=== PATIENT | female | born 1955 | race Caucasian/White ===

== ENCOUNTER → 2017-09-09 11:38 | Outpatient (CLI) | payer BC, SELFPAY ==
[2017-09-09 14:47] LABS: Basophils % 0.6 % (0.1-2.0); Eosinophils # 0.1 K/mm3 (0.0-0.4); Eosinophils % 1.5 % (0.1-12.0); Hematocrit 37.9 % (37.0-47.0); Hemoglobin 12.5 g/dL (12.2-16.2); Lymphocytes # 2.4 K/mm3 (0.7-4.5); Lymphocytes % 39.5 K/mm3 (10-50); Mean Corpuscular HGB Conc 32.9 g/dL (31.8-35.4); Mean Corpuscular Hemoglobin 30.2 pg (27.0-31.2); Mean Corpuscular Volume 91.8 fl (81-99); Mean Platelet Volume 7.6 fl (7.4-10.4); Monocytes # 0.4 K/mm3 (0.1-1.0); Neutrophils # 3.1 K/mm3 (1.8-7.8); Neutrophils % 51.3 % (37.0-80.0); Platelet Count 322 K/mm3 (142-424); Red Blood Count 4.13 M/mm3 (4.20-5.40); Red Cell Distribution Width 12.5 % (11.5-17.5); White Blood Count 6.1 K/mm3 (4.8-10.8)
[2017-09-09 16:38] LABS: Alanine Aminotransferase 53 U/L (12-78); Albumin Level 3.8 gm/dL (3.4-5.0); Albumin/Globulin Ratio 1.1 (1.1-1.8); Alkaline Phosphatase 119 U/L (46-116); Anion Gap 14.2 mEq/L (5-15); Aspartate Amino Transferase 28 U/L (15-37); Bilirubin,Total 0.3 mg/dL (0.2-1.0); Blood Urea Nitrogen 17 mg/dL (7-18); Calcium 9.1 mg/dL (8.5-10.1); Carbon Dioxide 29 mmol/L (21.0-32.0); Chloride 103 mmol/L (98-107); Cholesterol 204 mg/dL (140-200); Creatinine,Serum 0.79 mg/dL (0.55-1.02); Estimated Glomerular Filt Rate 74 ml/min (>60); GFR (African American) 89 ML/MIN (>60); Globulin 3.4 gm/dl (1.3-3.2); Glucose 116 mg/dL (74-106); HDL Cholesterol 51 mg/dL (29-89); LDL Cholesterol 124 mg/dL (0-130); Potassium 4.2 mmoL/L (3.5-5.1); Sodium 142 mmol/L (136-145); T4 (Thyroxine) 8.7 ug/dl (4.7-13.3); Thyroid Stimulating Hormone 0.82 uIU/ml (0.358-3.740); Total Protein,Serum 7.2 gm/dL (6.4-8.2); Triglycerides 144 mg/dL (30-200); VLDL Cholesterol 29 mg/dL (0-40)
[2017-09-10 18:30] LABS: Vitamin D 25 Hydroxy 30.4 ng/mL (30.0-100.0)
== END ==
PROVIDERS: Visit Provider Physician Assistant
DX: E11.9 Type 2 diabetes mellitus without complications (principal); E78.5 Hyperlipidemia, unspecified
CPT/HCPCS: 80053; 80061; 82652; 83036; 84436; 84443; 85025

== ENCOUNTER → 2019-04-26 16:45 | Outpatient (CLI) | payer BC, SELFPAY ==
[2019-04-26 17:06] LABS: Basophils % 0.5 % (0.1-2.0); Eosinophils # 0.1 K/mm3 (0.0-0.4); Eosinophils % 1.3 % (0.1-12.0); Hematocrit 37.1 % (37.0-47.0); Hemoglobin 12.4 g/dL (12.2-16.2); Lymphocytes # 2.8 K/mm3 (0.7-4.5); Lymphocytes % 34.2 % (10-50); Mean Corpuscular HGB Conc 33.5 g/dL (31.8-35.4); Mean Corpuscular Hemoglobin 30.9 pg (27.0-31.2); Mean Corpuscular Volume 92.2 fl (81-99); Mean Platelet Volume 7.4 fl (7.4-10.4); Monocytes # 0.5 K/mm3 (0.1-1.0); Monocytes % 6.5 % (1.7-9.3); Neutrophils # 4.7 K/mm3 (1.8-7.8); Neutrophils % 57.5 % (37.0-80.0); Platelet Count 406 K/mm3 (142-424); Red Blood Count 4.02 M/mm3 (4.20-5.40); Red Cell Distribution Width 12.9 % (11.5-17.5); White Blood Count 8.1 K/mm3 (4.8-10.8)
[2019-04-26 17:26] LABS: Alanine Aminotransferase 61 U/L (12-78); Albumin Level 3.8 gm/dL (3.4-5.0); Albumin/Globulin Ratio 1.1 (1.1-1.8); Alkaline Phosphatase 132 U/L (46-116); Anion Gap 9.3 mEq/L (5-15); Aspartate Amino Transferase 45 U/L (15-37); Bilirubin,Total 0.2 mg/dL (0.2-1.0); Blood Urea Nitrogen 15 mg/dL (7-18); Calcium 9.7 mg/dL (8.5-10.1); Carbon Dioxide 31 mmol/L (21.0-32.0); Chloride 101 mmol/L (98-107); Chol/HDL Ratio 4.1 (1-3.5); Cholesterol 187 mg/dL (140-200); Creatinine,Serum 0.98 mg/dL (0.55-1.02); Estimated Glomerular Filt Rate 57 ml/min (>60); Free T4 (Free Thyroxine) 1.04 ng/dl (0.76-1.46); GFR (African American) 69 ML/MIN (>60); Globulin 3.5 gm/dl (1.3-3.2); Glucose 90 mg/dL (74-106); HDL Cholesterol 46 mg/dL (29-89); LDL Cholesterol 99 mg/dL (0-130); Potassium 4.3 mmoL/L (3.5-5.1); Sodium 137 mmol/L (136-145); Thyroid Stimulating Hormone 1.98 uIU/ml (0.358-3.740); Total Protein,Serum 7.3 gm/dL (6.4-8.2); Triglycerides 208 mg/dL (30-200); VLDL Cholesterol 42 mg/dL (0-40)
[2019-04-26 18:11] LABS: Hemoglobin A1C 6.2 % (0.0-7.0)
[2019-04-28 12:12] LABS: Creatinine, Urine 143.1 mg/dL (Not Estab.); Microalbumin, Urine 11.4 ug/mL (Not Estab.)
[2019-04-28 18:49] LABS: Vitamin D 25 Hydroxy 25.1 ng/mL (30.0-100.0)
== END ==
PROVIDERS: Visit Provider Nurse Practitioner Family
DX: E11.9 Type 2 diabetes mellitus without complications (principal); I10 Essential (primary) hypertension; E55.9 Vitamin D deficiency, unspecified; Z79.84 Long term (current) use of oral hypoglycemic drugs; Z79.899 Other long term (current) drug therapy
CPT/HCPCS: 80053; 80061; 82043; 82570; 82652; 83036; 84439; 84443; 85025

== ENCOUNTER → 2019-05-08 13:48 | Outpatient (CLI) | payer BC, SELFPAY ==
--- NOTE | 2019-05-08 13:51 | XR_ITS ---
PROCEDURE: XR CHEST 2V CLINICAL HISTORY: elevated alk phos The COMPARISON: No exams were available for comparison FINDINGS: Normal heart size. Moderate-sized hiatal hernia. 6 mm nodule right lower lobe superior segment. The nodule is fairly dense and may be due to a granuloma. Stability may be confirmed with follow-up. There also ill-defined nodular opacity overlying the left lower lobe at 6 mm. The remaining lungs are clear. No acute bony finding. IMPRESSION: Bilateral pulmonary nodules which are indeterminate. Chest CT may provide further evaluation. Moderate-sized hiatal hernia Dictated by: Hosea Cole MD 05/08/2019 15:15 Electronically signed by Hosea Cole MD in [place] 05/08/2019 15:15
== END ==
PROVIDERS: PCP Emergency Medicine; Visit Provider Nurse Practitioner Family
DX: R74.8 Abnormal levels of other serum enzymes (principal)
CPT/HCPCS: 71046

== ENCOUNTER → 2019-06-01 13:04 | Outpatient (CLI) | payer BC, SELFPAY ==
--- NOTE | 2019-06-01 13:06 | CT_ITS ---
PROCEDURE: CT CHEST WO CON CLINICAL INDICATION: nodules Evaluate lung nodule, elevated alkaline phosphatase, abnormal chest x-ray, solitary pulmonary nodule COMPARISON: XR CHEST 2V from 05/08/2019 TECHNIQUE: Axial images obtained with sagittal and coronal reformats. All CT scans at the facility use one or more dose reduction, viz: automated exposure control, ma/kV adjustment per patient size (including targeted exams where dose is matched to indication, i.e. head), or iterative reconstruction technique. FINDINGS: Coronary artery calcifications. Normal heart size. Moderate-sized hiatal hernia. There is an 8 mm calcified nodule in the superior segment of the right lower lobe laterally corresponding to the radiographic abnormality. A 3 mm noncalcified nodules present in the right middle lobe inferiorly. A 4 mm noncalcified nodules present in the right lower lobe laterally. 4 mm noncalcified nodule in the left lower lobe inferiorly. No infiltrates or effusion. There are multiple bilateral breast nodules. Nodules have been described on a previous mammogram of 09/03/2016. IMPRESSION: 1. Radiographic abnormality corresponds to a calcified granuloma. 2. There are other noncalcified nodules present 4 mm or less. Annual follow-up suggested. 3. Moderate-sized hiatal hernia. 4. Bilateral breast nodules. Suggest mammogram for further evaluation Dictated by: Hosea Cole MD 06/02/2019 08:32 Electronically signed by Hosea Cole MD in [place] 06/02/2019 08:32
== END ==
PROVIDERS: PCP Nurse Practitioner Family; Visit Provider Nurse Practitioner Family
DX: R91.1 Solitary pulmonary nodule (principal)
CPT/HCPCS: 71250

== ENCOUNTER → 2021-12-09 07:05 | Outpatient (CLI) | payer MEDICARE, MEDICAID, SELFPAY ==
[2021-12-08 18:55] LABS: Basophils # 0.1 K/mm3 (0-0.2); Basophils % 1.2 % (0.1-2.0); Eosinophils # 0.1 K/mm3 (0.0-0.4); Eosinophils % 1.3 % (0.1-12.0); Hemoglobin 12.4 g/dL (12.2-16.2); Lymphocytes % 30.1 % (10-50); Mean Corpuscular HGB Conc 33.7 g/dL (31.8-35.4); Mean Corpuscular Hemoglobin 30.5 pg (27.0-31.2); Mean Corpuscular Volume 90.6 fl (81-99); Mean Platelet Volume 8.1 fl (7.4-10.4); Monocytes # 0.8 K/mm3 (0.1-1.0); Monocytes % 7.5 % (1.7-9.3); Neutrophils % 59.9 % (37.0-80.0); Platelet Count 436 K/mm3 (142-424); Red Blood Count 4.08 M/mm3 (4.20-5.40); Red Cell Distribution Width 14.3 % (11.5-17.5)
[2021-12-08 19:43] LABS: Alanine Aminotransferase 53 U/L (12-78); Albumin Level 4.2 g/dl (3.5-5.0); Albumin/Globulin Ratio 1.4 (1.1-1.8); Alkaline Phosphatase 139 U/L (38-126); Anion Gap 15.3 mEq/L (5-15); Aspartate Amino Transferase 50 U/L (14-36); Blood Urea Nitrogen 18 mg/dl (7-17); Calcium 10.1 mg/dl (8.4-10.2); Carbon Dioxide 24 mmol/L (22.0-30.0); Chloride 102 mmol/L (98-107); Chol/HDL Ratio 4.4 (1-3.5); Cholesterol 192 mg/dl (140-200); Estimated Glomerular Filt Rate 72 ml/min (>60); GFR (African American) 87 ML/MIN (>60); Glucose 140 mg/dl (74-100); HDL Cholesterol 44 mg/dl (40-60); Potassium 4.3 mmoL/L (3.5-5.1); Sodium 137 mmol/L (136-145); Total Protein,Serum 7.2 g/dl (6.3-8.2); Triglycerides 195 mg/dl (30-150); VLDL Cholesterol 39 mg/dL (0-40)
[2021-12-08 19:46] LABS: Bilirubin,Total 0.1 mg/dl (0.2-1.3); Hemoglobin A1C 6.4 % (4.0-6.0)
[2021-12-08 19:54] LABS: Direct LDL Cholesterol 97.65 mg/dL (100-129)
[2021-12-08 20:00] LABS: T4 (Thyroxine) 8.1 ug/dl (5.53-11.0)
[2021-12-08 21:00] LABS: Thyroid Stimulating Hormone 1.78 uIU/mL (0.465-4.68)
== END ==
PROVIDERS: PCP Nurse Practitioner Family; Visit Provider Nurse Practitioner Family
DX: E11.9 Type 2 diabetes mellitus without complications (principal); E66.3 Overweight; E78.5 Hyperlipidemia, unspecified; I10 Essential (primary) hypertension; K21.9 Gastro-esophageal reflux disease without esophagitis; Z68.29 Body mass index [BMI] 29.0-29.9, adult; E55.9 Vitamin D deficiency, unspecified; Z79.84 Long term (current) use of oral hypoglycemic drugs
CPT/HCPCS: 80053; 80061; 82043; 82306; 83036; 84436; 84443; 85025

== ENCOUNTER 2023-11-11 15:13 | Outpatient (CLI) | payer MEDICARE, MEDICAID, SELFPAY ==
[2023-11-11 18:53] LABS: Basophils # 0.1 K/mm3 (0-0.2); Basophils % 0.7 % (0.1-2.0); Eosinophils # 0.1 K/mm3 (0.0-0.4); Eosinophils % 1.6 % (0.1-12.0); Hematocrit 40.1 % (37.0-47.0); Hemoglobin 13.1 g/dL (12.2-16.2); Lymphocytes # 3.1 K/mm3 (0.7-4.5); Lymphocytes % 33.9 % (10-50); Mean Corpuscular HGB Conc 32.7 g/dL (31.8-35.4); Mean Corpuscular Hemoglobin 30.4 pg (27.0-31.2); Mean Corpuscular Volume 93.1 fl (81-99); Mean Platelet Volume 8.3 fl (7.4-10.4); Monocytes # 0.6 K/mm3 (0.1-1.0); Neutrophils # 5.2 K/mm3 (1.8-7.8); Neutrophils % 56.8 % (37.0-80.0); Platelet Count 405 K/mm3 (142-424); Red Blood Count 4.31 M/mm3 (4.20-5.40); White Blood Count 9.1 K/mm3 (4.8-10.8)
[2023-11-11 19:06] LABS: Alanine Aminotransferase 36 U/L (12-78); Albumin Level 4.4 g/dl (3.5-5.0); Albumin/Globulin Ratio 1.5 (1.1-1.8); Alkaline Phosphatase 124 U/L (38-126); Aspartate Amino Transferase 42 U/L (14-36); Bilirubin,Total 0.5 mg/dl (0.2-1.3); Blood Urea Nitrogen 14 mg/dl (7-17); Calcium 10.1 mg/dl (8.4-10.2); Carbon Dioxide 28 mmol/L (22.0-30.0); Chloride 101 mmol/L (98-107); Cholesterol 187 mg/dl (140-200); Estimated Glomerular Filt Rate 49 ml/min (>60); GFR (African American) 60 ML/MIN (>60); Globulin 2.9 g/dL (1.3-3.2); Glucose 96 mg/dl (74-100); HDL Cholesterol 62 mg/dl (40-60); Sodium 140 mmol/L (136-145); Total Protein,Serum 7.3 g/dl (6.3-8.2); Triglycerides 170 mg/dl (30-150); VLDL Cholesterol 34 mg/dL (0-40)
[2023-11-11 19:17] LABS: Direct LDL Cholesterol 86.79 mg/dL (100-129)
[2023-11-11 19:21] LABS: 25-OH Vitamin D, Total 41.3 ng/mL (30-100)
[2023-11-11 19:36] LABS: Thyroid Stimulating Hormone 1.71 uIU/mL (0.465-4.68)
[2023-11-11 19:55] LABS: Vitamin B12 488 pg/mL (239-931)
[2023-11-11 20:38] LABS: Hemoglobin A1C 5.9 % (4.0-6.0)
== END 2023-11-11 23:59 | disposition home or self-care (01) ==
LOC: LAB.DROPOF 11-14 15:14
PROVIDERS: PCP Family Medicine; Visit Provider Family Medicine
DX: R53.83 Other fatigue (principal); E55.9 Vitamin D deficiency, unspecified; R73.09 Other abnormal glucose; E78.5 Hyperlipidemia, unspecified; E53.8 Deficiency of other specified B group vitamins; Z68.26 Body mass index [BMI] 26.0-26.9, adult
CPT/HCPCS: 80053; 80061; 82306; 82607; 83036; 84443; 85025

== ENCOUNTER 2024-01-04 12:14 | Day surgery (SDC) | payer MEDICARE, MEDICAID, SELFPAY ==
[2024-01-03 09:22] VITALS: BMI 25.9
[2024-01-04 12:51] VITALS: BP 142/69; PULSE 48; RESP 18; TEMP 36.3; O2SAT 96
--- NOTE | 2024-01-04 14:02 | EXP.ANES.CKL ---
[facility] Disclaimer: The information contained in this section may have been updated after the patient was seen, as this information can be updated by other users. Medical History Overweight with body mass index (BMI) of 29 to 29.9 in adult GERD (gastroesophageal reflux disease) Diabetes Depression Hyperlipidemia Hypertension Surgical History History of colonoscopy Family History Other Family history of cancer Social History Smoking Status: Never smoker alcohol intake: current substance use type: denies use current occupational status: retired Travel in the last 8 weeks: None [facility] Anesthesia Checklist Patient Identification Patient Identification: Arm Band and Verbal (Name & ) Structural Data Admitted From: Home Planned Operative Procedure/s: EGD Consent for Planned Operative Procedure(s) Verified: Yes Verified Documents: Surgical Consent and History and Physical NPO Status Verified Time NPO: 00:00 Additional verifications Anesthesia Reactions: No Airway Assessment Mallampati Score:: Class II C-Spine Mobility Assessed: Yes TMJ Mobility Assessed: Yes Dentition: Poor Dentition Neurological Assessment Level of Consciousness: Awake Hx Seizures: No Numbness or tingling in extremities: No Anesthesia Plan Anesthesia Risk discussed: Yes Anesthesia Plan: Verified ASA Class: II Anesthesia Type: MAC
[2024-01-04 14:10] VITALS: O2SAT 95
--- NOTE | 2024-01-04 14:29 | HMH.SCOPE ---
Procedure: Date: 01/04/24 Patient Date of :: 1955 Procedure Performed:: EGD Indications:: The patient is a 68-year-old who presents for EGD evaluation of dysphagia Performing Provider:: Lyndon Khan MD Referring Provider:: Meme Canales APRN Sedation:: See RN record Procedure:: The gastroscope was gently passed through the incisoral orifice into the oral cavity and under direct visualization the esophagus was intubated. The endoscope was passed down the esophagus, through the stomach, and into the duodenum. Color, texture, mucosa, and anatomy of the esophagus, stomach, and duodenum were carefully examined with the scope. Findings:: There was finding of Priest's esophagus in the distal esophagus. Short segment extending 2 to 2.5 cm above the GE junction. There were islands of normal-appearing esophageal mucosa within the Priest's mucosa. There was a benign appearing narrowing at the GE junction. The gastroscope passed easily through this area. Esophageal dilatation was performed sequentially with an 18 to 20 mm TTS balloon. Biopsies were obtained in four-quadrant fashion throughout the Priest's mucosa. There was persistent oozing of blood after a mucosal biopsy. Hemostasis was achieved with deployment of two endoclips. There was a large hiatal hernia measuring approximately 9 cm in size. There was inflammation of the gastric body characterized by erythema and congestion. There were scattered small fundic gland polyps seen in the stomach. Biopsies were obtained with a cold forceps for histology. Examined duodenum appeared normal. Impression: Short segment Priest's esophagus Large hiatal hernia Gastritis Fundic gland polyps Recommendations:: Await pathology was Recommend upper GI barium study Continue pantoprazole as prescribed Repeat EGD in 3 years, sooner if clinically indicated Complications:: None Estimated blood obtained (mL): 0 Colonoscopy Component Colonoscopy Component Was a colonoscopy performed during today's procedure?: No
[2024-01-04 14:30] VITALS: BP 94/51; PULSE 68; RESP 16; TEMP 36.5; O2SAT 92
[2024-01-04 14:40] VITALS: BP 94/54; PULSE 61; RESP 12; O2SAT 93
[2024-01-04 14:50] VITALS: BP 100/61; PULSE 61; RESP 16; O2SAT 92
--- NOTE | 2024-01-04 14:50 | SUR.PHASEII ---
BP 76/46. patient unresponsive post sedation for EGD. providers at bedside. patient now remains stable with BP 100/61 and alert x4
[2024-01-04 15:15] VITALS: BP 113/71; PULSE 54; RESP 16; O2SAT 97
[2024-01-05 10:27] LABS: POC Glucose,Bedside 107 (70-110)
== END 2024-01-04 15:15 | disposition home or self-care (01) ==
PROVIDERS: PCP Nurse Practitioner Family; Visit Provider Internal Medicine
PROC: 0DJ08ZZ Inspection of Upper Intestinal Tract, Via Natural or Artificial Opening Endoscopic (ICD-10-PCS; CPT 43235; principal; 2024-01-04 13:30)
DX: R13.10 Dysphagia, unspecified; K21.9 Gastro-esophageal reflux disease without esophagitis; K44.9 Diaphragmatic hernia without obstruction or gangrene; K29.70 Gastritis, unspecified, without bleeding; K22.70 Barrett's esophagus without dysplasia; K31.7 Polyp of stomach and duodenum; E11.8 Type 2 diabetes mellitus with unspecified complications; Z79.84 Long term (current) use of oral hypoglycemic drugs
CPT/HCPCS: 43239; 43249; 82962; 88305; C1726

== ENCOUNTER 2024-01-13 07:43 | Outpatient (CLI) | payer MEDICARE, MEDICAID, SELFPAY ==
--- NOTE | 2024-01-13 07:47 | FL_ITS ---
FINAL REPORT CLINICAL HISTORY: solids and liquids both get stuck mid chest. scoped and biopsy last week DAP 780.91 fluoro 46.98 FINDINGS: ESOPHAGRAM HISTORY: Abdominal pain, nausea. PROCEDURE: The patient ingested barium. Effervescent crystals were also administered. Spot and overhead films were obtained. FINDINGS: The esophagus is normal. There is a large type III hiatal hernia. There is no gastroesophageal reflux. Peristalsis is normal. A barium tablet passes through the esophagus without obstruction. IMPRESSION: Large type III hiatal hernia with hiatal and paraesophageal components. Fluoroscopy time: 47 seconds Fluoro dose: 780.91 DAP in [employer] reviewed , interpreted and dictated by Dr. Sarika Melgar. Transcribed by Hiram Maher PA-C. Reviewed, Interpreted and Dictated by Sarika Melgar MD Transcribed by MELY Clinton Authenticated and [facility]
== END 2024-01-13 23:59 | disposition home or self-care (01) ==
LOC: RAD 07:44
PROVIDERS: PCP Physician Assistant; Visit Provider Internal Medicine
DX: R13.10 Dysphagia, unspecified (principal); K44.9 Diaphragmatic hernia without obstruction or gangrene
CPT/HCPCS: 74220

== ENCOUNTER 2024-04-15 18:32 | Observation (INO) | payer MEDICARE, MEDICAID, SELFPAY ==
--- NOTE | 2024-04-15 18:30 | ECG_ITS ---
APPROVED REPORT Exam: Resting ECG HR:144 bpm ECG Measurements Heart Rate 144 AXES QRSd 78 QRS 57 QT 323 T 119 QTc 406 Conclusion ATRIAL FLUTTER/TACHYCARDIA WITH RAPID VENTRICULAR RESPONSE NONSPECIFIC ST & T-WAVE ABNORMALITY ABNORMAL ECG UNCONFIRMED REPORT Electronically signed by : SARAI LOPEZ, 04/16/2024 06:53:49
[2024-04-15 18:32] VITALS: BP 119/68; PULSE 147; RESP 20; TEMP 36.7; O2SAT 99; BMI 25.7
--- NOTE | 2024-04-15 18:34 | HMH.EDCP ---
Discharge Plan Disposition Patient Disposition: Admitted Chief Complaint: Chest Pain Prescriptions Prescriptions: No Action atorvastatin 80 mg tablet See Rx Instructions .ROUTE .COMPLEX Qty: 90 2RF Dose Instruction: Take 1 tablet by mouth once daily Rx Instructions: Take 1 tablet by mouth once daily patient needs an appt before anymore refills bisoprolol-hydrochlorothiazide 5-6.25 mg tablet See Rx Instructions .ROUTE .COMPLEX Qty: 90 2RF Dose Instruction: Take 1 tablet by mouth once daily Rx Instructions: Take 1 tablet by mouth once daily cholecalciferol (vitamin D3) [Vitamin D3] 50 mcg (2,000 unit) capsule See Rx Instructions .ROUTE .COMPLEX Qty: 90 2RF Dose Instruction: Take 1 capsule by mouth once daily Rx Instructions: Take 1 capsule by mouth once daily fluoxetine 40 mg capsule See Rx Instructions .ROUTE .COMPLEX Qty: 90 2RF Dose Instruction: Take 1 capsule by mouth once daily Rx Instructions: Take 1 capsule by mouth once daily metformin 500 mg tablet See Rx Instructions .ROUTE .COMPLEX Qty: 90 2RF Dose Instruction: Take 1 tablet by mouth once daily Rx Instructions: Take 1 tablet by mouth once daily pantoprazole 40 mg tablet,delayed release (DR/EC) See Rx Instructions .ROUTE .COMPLEX Qty: 90 3RF Dose Instruction: Take 1 tablet by mouth once daily Rx Instructions: Take 1 tablet by mouth once daily hydroxyzine pamoate [Vistaril] 25 mg capsule 25 mg PO HS Qty: 30 0RF ergocalciferol (vitamin D2) 1,250 mcg (50,000 unit) capsule PO Patient Comments: TAKE 1 CAPSULE BY MOUTH ONCE A WEEK Referrals Follow up/Referrals: Meera Miles PA [Physician Circuit Clerk] - See instructions Clinical Impressions Clinical Impression: Gastroparesis, Chest pain, Abdominal pain, Acute hypokalemia Print Language Print Language: Lebanese Discharge ED Provider: Silas Clement HPI General Chief Complaint: Chest Pain Stated Complaint: Chest Pain Time Seen by Provider: 04/15/24 18:34 History of Present Illness HPI narrative: Please note that above description of symptoms, in this electronic medical record under categorization of recalled from ER triage doctor by RN are reflective of an initial nursing assessment, however, is not reflective of my full history and physical exam that was personally taken and clarified. Consequentially, this preceding description of symptoms, which may include the patient's categorized chief complaint in the EMR, do not reflect my personal clinical impression, and the ultimate description of history of present illness and patient stated complaints should be deferred to this section of the note. Unless stated otherwise or congruent with this section of the note, additional signs, symptoms, or incongruence should be interpreted as inaccurate with my clinical impression. Related Data Home Medications ?Medication ?Instructions ?Recorded ?Confirmed ergocalciferol (vitamin D2) 1,250 PO 03/20/24 03/20/24 mcg (50,000 unit) capsule Previous Rx's ?Medication ?Instructions ?Recorded atorvastatin 80 mg tablet See Rx Instructions .Route 11/11/23 .COMPLEX #90 tabs bisoprolol 5 See Rx Instructions .Route 11/11/23 mg-hydrochlorothiazide 6.25 mg .COMPLEX #90 tabs tablet cholecalciferol (vitamin D3) 50 See Rx Instructions .Route 11/11/23 mcg (2,000 unit) capsule (Vitamin .COMPLEX #90 caps D3) fluoxetine 40 mg capsule See Rx Instructions .Route 11/11/23 .COMPLEX #90 caps hydroxyzine pamoate 25 mg capsule 25 mg PO HS #30 caps 11/11/23 (Vistaril) metformin 500 mg tablet See Rx Instructions .Route 11/11/23 .COMPLEX #90 tabs pantoprazole 40 mg tablet,delayed See Rx Instructions .Route 11/11/23 release .COMPLEX #90 tabs Allergies Allergy/AdvReac Type Severity Reaction Status Date / Time No Known Drug Allergies Allergy Unknown NA Verified 03/20/24 11:05 [NKDA] [facility] Disclaimer: The information contained in this section may have been updated after the patient was seen, as this information can be updated by other users. Medical History Overweight with body mass index (BMI) of 29 to 29.9 in adult GERD (gastroesophageal reflux disease) Diabetes Depression Hyperlipidemia Hypertension Surgical History History of colonoscopy Family History Other Family history of cancer Social History Smoking Status: Unknown if ever smoked alcohol intake: current substance use type: denies use current occupational status: retired Travel in the last 8 weeks: None Other Medical History Have you received the Flu Vaccine for this season: No Have you received the Pneumonia Vaccine: No ROS Obtained: Yes All systems reviewed & no additional complaints except as documented Physical Exam General General appearance: alert Neck Neck exam: Present trachea midline Chest Chest inspection: Present normal inspection and symmetric chest wall rise Respiratory Respiratory exam: Present normal lung sounds bilaterally; Absent respiratory distress, wheezes, stridor, accessory muscle use or prolonged expiratory phase Cardiovascular Cardiovascular exam: Present regular rate, normal rhythm and other (Pulses equal and symmetric in upper and lower extremities) Extremities Exam Extremities exam: Absent edema Neurological Exam Neurological exam: Present alert, oriented X3 and CN II-XII intact Skin Skin exam: Present warm and dry; Absent cyanosis, diaphoresis or pallor HEART Score HEART Score HEART Score assessment performed?: Yes History (anamnesis): Moderately suspicious ECG: Non-specific disturbance Age: >65 years Risk factors: 1-2 risk factors Troponin: </= normal limit HEART Score: 5 Critical Care Critical Care Time Critical Care Time: No Medical Decision Making Medical Records Medical records reviewed: Yes I reviewed the patient's medical records. Jovi Inquiry Pt receiving controlled substance: No Jovi was queried for this patient: No Vital Signs Vital Signs: 04/15/24 18:32 04/15/24 19:15 Temperature 98.1 F Temperature Source Oral Pulse Rate 82 Pulse Rate [Radial] 147 H Respiratory Rate 20 22 Blood Pressure 121/77 Blood Pressure [Right Arm] 119/68 Blood Pressure Mean [Right Arm] 85 Blood Pressure Source [Right Arm] Automatic Cuff Blood Pressure Position [Right Arm] Sitting 02 Sat by Pulse Oximetry 99 99 Oxygen Delivery Method Room Air Nasal Cannula Oxygen Flow Rate (LPM) 2 Lab Data Labs: Lab Results 04/15/24 18:12: WBC 15.3 H, RBC 4.07 L, Hgb 13.0, Hct 37.3, MCV 91.7, MCH 32.1 H, MCHC 35.0, RDW 13.5, Plt Count 451 H, MPV 7.6, Neut % (Auto) 47.4, Lymph % (Auto) 43.0, [place] % (Auto) 8.1, Eos % (Auto) 0.7, Baso % (Auto) 0.8, Neut # (Auto) 7.3, Lymph # (Auto) 6.6 H, [place] # (Auto) 1.2 H, Eos # (Auto) 0.1, Baso # (Auto) 0.1, Total Counted 100, Neutrophils % (Manual) 46, Lymphocytes % (Manual) 42, Atypical Lymphs % 3.0, Monocytes % (Manual) 9, Platelet Estimate Normal, Ruben Cells 2+, Sodium 143, Potassium 2.9 L*, Chloride 98, Carbon Dioxide 26, Anion Gap 21.9 H, BUN 17, Creatinine 1.10 H, Estimated Creat Clear 50, Estimated GFR 49 L, Est GFR ( Amer) 60, Glucose 183 H, Calcium 9.9, Magnesium 1.3 L, Total Bilirubin 0.7, AST 54 H, ALT 58, Alkaline Phosphatase 99, Troponin I < 0.01, NT-Pro-B Natriuret Pep 562 H, Total Protein 7.7, Albumin 4.6, Globulin 3.1, Albumin/Globulin Ratio 1.5 04/15/24 18:37: VBG pH 7.56 H, VBG pCO2 25.4 L, VBG pO2 35.6, VBG HCO3 22.3 L, VBG Total CO2 23.1, VBG O2 Saturation 73.5 H, VBG Base Excess 0.2, VBG Lactic Acid 7.2 H 04/15/24 19:02: Lactate 7.0 H 04/15/24 18:12 04/15/24 18:12 Response Orders (Tests/Meds): ED MEDICATIONS Generic Name Dose Route Start Last Admin Trade Name Freq PRN Reason Stop Dose Admin Potassium Chloride/Water 100 mls @ 100 mls/hr 04/15/24 19:30 04/15/24 19:49 Potassium Chloride 10meq/100ml Ivpb IV 04/15/24 22:29 100 mls/hr Q1H CYNTHIA Administration Miscellaneous 1 each 04/15/24 20:30 Vancomycin Consult Request NOTAPPLIC 05/15/24 20:29 CONSULT PHARMACY CYNTHIA Phenol 0 ml 04/15/24 20:48 Phenol Throat [place] 177 Ml Bottle MM 05/15/24 20:47 NEEDED PRN Cough Sodium Chloride 10 ml 04/15/24 19:30 04/15/24 19:30 Sodium Chloride 0.9% 10ml Syr (Rad Only) IV 05/15/24 19:29 10 ml NEEDED PRN Administration Maintain IV Site Discontinued Medications Generic Name Dose Route Start Last Admin Trade Name Freq PRN Reason Stop Dose Admin Diltiazem HCl 20 mg 04/15/24 18:46 04/15/24 19:06 Diltiazem 25mg/5ml Vial IV 04/15/24 18:47 Not Given ONCE ONE Hydromorphone HCl 0.5 mg 04/15/24 18:42 04/15/24 19:05 Hydromorphone 2mg/Ml Syringe IV 04/15/24 18:43 0.5 mg ONCE ONE Administration Magnesium Sulfate 2 gm in 50 mls @ 50 mls/hr 04/15/24 19:21 04/15/24 19:49 Magnesium Sulfate 2gm/50ml Premix IV 04/15/24 20:20 50 mls/hr ONCE ONE Administration Ampicillin Sodium/Sulbactam 100 mls @ 200 mls/hr 04/15/24 20:27 04/15/24 20:34 Sodium 3 gm/ Sodium Chloride IV 04/15/24 20:28 200 mls/hr ONCE ONE Administration Iopamidol 80 ml 04/15/24 19:28 04/15/24 19:30 Iopamidol-370 (76%);100ml Bottle IV 04/15/24 19:29 80 ml ONCE ONE Administration Ketorolac Tromethamine 15 mg 04/15/24 18:42 04/15/24 19:05 Ketorolac 30mg/Ml Vial IV 04/15/24 18:43 15 mg ONCE ONE Administration Magnesium Oxide 400 mg 04/15/24 19:21 04/15/24 20:12 Magnesium Oxide 400mg Tablet PO 04/15/24 19:22 Not Given ONCE ONE Ondansetron HCl 4 mg 04/15/24 18:42 04/15/24 19:06 Ondansetron 4mg/2ml Vial IV 04/15/24 18:43 4 mg ONCE ONE Administration Potassium Chloride 60 meq 04/15/24 19:21 04/15/24 20:12 Potassium Chloride 20meq Tab PO 04/15/24 19:22 Not Given ONCE ONE Sodium Chloride 50 ml 04/15/24 19:28 04/15/24 19:30 0.9 % Sodium Chloride 50 Ml Vial IV 04/15/24 19:29 50 ml ONCE ONE Administration ORDERS Category Date Time Status CT angio abdomen pelvis Stat Cat Scan 04/15/24 18:[address] angio chest - dissection Stat Cat Scan 04/15/24 18:39 Completed Abdomen XR flat & upright [XR acute abdomen series] Exams 04/15/24 20:46 Taken Stat CXR --portable [XR chest portable] Stat Exams 04/15/24 18:39 Completed CBC w/Auto Diff [Complete Blood Count Auto Diff] Stat Lab 04/15/24 18:12 Completed CMP [Comprehensive Metabolic Panel] Stat Lab 04/15/24 18:12 Completed Lactic Acid Stat Lab 04/15/24 19:02 Completed Magnesium Stat Lab 04/15/24 18:12 Completed NT Pro Brain Natriuretic Pep. Stat Lab 04/15/24 18:12 Completed Trop I [Troponin I] Stat Lab 04/15/24 18:12 Completed Troponin I Q3H Lab 04/15/24 21:45 Ordered Troponin I Q3H Lab 04/16/24 00:45 Ordered Blood Culture Stat Micro 04/15/24 19:41 Received VBG [Venous Blood Gas] Stat RT 04/15/24 18:37 Completed ECG Data Tracing #1: Attestation: I reviewed this ECG and interpreted as documented below: (Atrial flutter versus SVT 144 bpm with no discernible P waves. Rate 144, QRS 78, QTc 408. Normal axis. Diffuse ST depressions) MDM Narrative Medical Decision Narrative: 68-year-old female history of hypertension, hyperlipidemia, diabetes, anxiety, hiatal hernia presenting with chest pain. Patient states that chest pain started much earlier today, 10/20 in the morning. She was not doing anything in particular. Had eaten breakfast about an hour prior, was sitting on the couch. Started having abdominal pain/substernal chest pain that did not radiate. Has been progressive. States it is 10 out of 10 right now. Called EMS to have her brought to the emergency department. No vomiting, diarrhea, constipation. She is passing flatus. No shortness of breath, diaphoresis, neurologic deficits, etc. History was obtained via conversation with patient and EMS. On arrival, patient hemodynamically stable, alert, oriented x4, appropriate, GCS 15, moving all extremities spontaneously, pupils equal and reactive to light. Full physical exam performed and significant for anxious appearing, complaining of pain. She is tremulous, but states that this is her baseline, just a little worse than usual. Cardiopulmonary exam within normal limits other than tachycardia. No lower extremity edema. Lungs are clear to auscultation bilaterally anterior and posteriorly. Patient neurologically intact. Differential includes microvascular coronary artery disease, CHF, ACS, PA, A-fib, other supraventricular arrhythmia, ventricular arrhythmia, coronary artery dissection, pneumothorax, PE, dissection, pericarditis, myocarditis, pneumothorax, aortic aneurysm, pneumonia, bronchitis, ischemic hiatal hernia, among others. Patient was given 0.5 mg Dilaudid, Zofran, for symptomatic management and correction of underlying abnormalities. Diltiazem was drawn up, prior to being given, patient spontaneously converted into normal sinus rhythm. Patient placed on continuous cardiac monitoring and continuous pulse ox with initial blood pressure 121/77, heart rate 82, saturation 99% on room air. Independent interpretation of EKG shows SVT right around [address] depressions. No elevations. After spontaneous conversion just a few minutes later, patient sinus rhythm 81 beats a minute with ST depressions in nearly all leads without reciprocal elevations. Workup independently interpreted and significant for leukocytosis 15, thrombocytosis. Leukocytosis is lipophilic. VBG with concern for respiratory alkalosis VBG pH 7.56, CO2 low at 25, bicarb essentially normal at 22.3. Patient's lactate 7.2. This could be due to tachycardia, hypoperfusion, or increased work of breathing in the setting of anxiety versus panic attack. Independent interpretation of chemistry with normal sodium, potassium low at 2.9. Tried to replete potassium and magnesium orally, patient vomited immediately. Mild SAULO creatinine 1.1. LFTs nonactionable. On independent interpretation of imaging, patient has large stomach with large hiatal hernia, appears to be bigger than previous scan. Possible gastric outlet obstruction, but large amount of volume in the stomach. No obvious obstruction distally. No PE or dissection on CT angiogram of the chest. See radiology read for full review of final results. Heart score 5. On reevaluation, patient in moderate pain. NG tube was placed, patient had about 400 milliliters of gastric contents out. Pain much better, however having pain in his throat from the NG tube. Chloraseptic spray was applied. Given patient presentation, workup, history, this most likely represents gastroparesis, gastric outlet obstruction, inability to tolerate p.o. intake, and hypokalemia. No evidence of gastric ischemia, perforation, or other concerns on CT scan. Hospital medicine was contacted and case was discussed at length, agreeable to admission. Likely would benefit from gastroenterology consult. Because patient high risk for clinical decompensation, deemed appropriate for inpatient admission. Results were relayed to patient who voiced understanding and patient was agreeable to inpatient admission and management. Patient was admitted to the hospital for further definitive management. Machine Heel Seat Laster disclaimer Much of this encounter note is an electronic barrow worker helper spoken language to printed text. Electronic barrow worker helper of the spoken language may permit errors. Although I have reviewed the note, some errors may still exist.
--- NOTE | 2024-04-15 18:39 | CT_ITS ---
PROCEDURE INFORMATION: Exam: CTA Chest With Contrast Exam date and time: 04/15/2024 7:23 PM Age: 68 years old Clinical indication: Pain; Chest pressure; Additional info: Cp SOA without hypoxemia TECHNIQUE: Imaging protocol: Computed tomographic angiography of the chest with contrast. Exam focused on the arteries. 3D rendering (Not supervised by radiologist): MIP and/or 3D reconstructed images were created by the technologist. Radiation optimization: All CT scans at this facility use at least one of these dose optimization techniques: automated exposure control; mA and/or kV adjustment per patient size (includes targeted exams where dose is matched to clinical indication); or iterative reconstruction. Contrast material: ISOVUE 370; Contrast volume: 80 ml; Contrast route: INTRAVENOUS (IV); COMPARISON: CT CHEST WO CON 06/01/2019 1:33 PM FINDINGS: Pulmonary arteries: Normal. No pulmonary emboli. Aorta: Atherosclerotic calcification of thoracic aorta. No dilatation or dissection. Lungs: Secondary compressive subsegmental atelectasis of adjacent lungs. Pleural spaces: Unremarkable. No pneumothorax. No pleural effusion. Heart: Unremarkable. No cardiomegaly. No pericardial effusion. Lymph nodes: Unremarkable. No enlarged lymph nodes. Stomach: Enlarging, large hiatal hernia with secondary compressive subsegmental atelectasis. No obvious gastric ischemia Bones/joints: Unremarkable. No acute fracture. Soft tissues: Unremarkable. IMPRESSION: 1. No central or segmental pulmonary arterial embolism identified. 2. Larger hiatal hernia without obvious gastric ischemia.
--- NOTE | 2024-04-15 18:39 | CT_ITS ---
PROCEDURE INFORMATION: Exam: CTA Abdomen and Pelvis With Contrast Exam date and time: 04/15/2024 7:23 PM Age: 68 years old Clinical indication: Abdominal pain; Acute; Additional info: H/o hiatal hernia, acute pain, rule out ischemia TECHNIQUE: Imaging protocol: Computed tomographic angiography of the abdomen and pelvis with contrast. Exam focused on the arteries. 3D rendering (Not supervised by radiologist): MIP and/or 3D reconstructed images were created by the technologist. Radiation optimization: All CT scans at this facility use at least one of these dose optimization techniques: automated exposure control; mA and/or kV adjustment per patient size (includes targeted exams where dose is matched to clinical indication); or iterative reconstruction. Contrast material: ISOVUE 370; Contrast volume: 80 ml; Contrast route: INTRAVENOUS (IV); COMPARISON: CT ANGIO CHEST 04/15/2024 7:23 PM FINDINGS: Aorta: No aortic aneurysm. No aortic dissection. Celiac trunk and mesenteric arteries: No occlusion or significant stenosis. Renal arteries: No occlusion or significant stenosis. Right iliac arteries: No occlusion or significant stenosis. Left iliac arteries: No occlusion or significant stenosis. Liver: No mass. Gallbladder and biliary ducts: Unremarkable. No calcified stones. No ductal dilation. Pancreas: Unremarkable. No mass. No ductal dilation. Spleen: Unremarkable. No splenomegaly. Adrenal glands: Unremarkable. No mass. Kidneys and ureters: 0.8 cm nonobstructive left renal calculus. Stomach and bowel: Enlarging, large hiatal hernia with secondary compressive subsegmental atelectasis. No obvious gastric ischemia Appendix: No evidence of appendicitis. Intraperitoneal space: Unremarkable. No free air. No significant fluid collection. Lymph nodes: Unremarkable. No enlarged lymph nodes. Urinary bladder: Unremarkable. No mass. Reproductive: Unremarkable as visualized. Bones/joints: No acute fracture. Soft tissues: Unremarkable. IMPRESSION: 1. Unremarkable abdominopelvic CT. 2. Larger hiatal hernia without evidence for gastric ischemia. 3. Nonobstructive left renal calculus.
--- NOTE | 2024-04-15 18:39 | XR_ITS ---
PROCEDURE INFORMATION: Exam: XR Chest Exam date and time: 04/15/2024 7:26 PM Age: 68 years old Clinical indication: Shortness of breath; Additional info: SOA, cp, tachycardia TECHNIQUE: Imaging protocol: Radiologic exam of the chest. Views: 1 view. COMPARISON: CT ANGIO CHEST 04/15/2024 7:23 PM FINDINGS: Lungs: Partial herniation of stomach into left hemidiaphragm with compressive subsegmental atelectasis. Pleural spaces: Unremarkable. No pleural effusion. No pneumothorax. Heart/Mediastinum: Unremarkable. No cardiomegaly. Bones/joints: Unremarkable. IMPRESSION: Partial gastric herniation into left chest.
[2024-04-15 18:50] LABS: Basophils # 0.1 K/mm3 (0-0.2); Basophils % 0.8 % (0.1-2.0); Eosinophils # 0.1 K/mm3 (0.0-0.4); Eosinophils % 0.7 % (0.1-12.0); Hematocrit 37.3 % (37.0-47.0); Lymphocytes # 6.6 K/mm3 (0.7-4.5); Mean Corpuscular Hemoglobin 32.1 pg (27.0-31.2); Mean Corpuscular Volume 91.7 fl (81-99); Mean Platelet Volume 7.6 fl (7.4-10.4); Monocytes # 1.2 K/mm3 (0.1-1.0); Monocytes % 8.1 % (1.7-9.3); Neutrophils # 7.3 K/mm3 (1.8-7.8); Neutrophils % 47.4 % (37.0-80.0); Platelet Count 451 K/mm3 (142-424); Red Blood Count 4.07 M/mm3 (4.20-5.40); Red Cell Distribution Width 13.5 % (11.5-17.5); White Blood Count 15.3 K/mm3 (4.8-10.8)
[2024-04-15 18:52] LABS: Albumin Level 4.6 g/dl (3.5-5.0); Chloride 98 mmol/L (98-107); Sodium 143 mmol/L (136-145)
[2024-04-15 18:54] LABS: MANUAL DIFFERENTIAL MANUAL DIFFERENTIAL (MANUAL DIFF)
[2024-04-15 18:55] LABS: Alanine Aminotransferase 58 U/L (12-78); Albumin/Globulin Ratio 1.5 (1.1-1.8); Alkaline Phosphatase 99 U/L (38-126); Anion Gap 21.9 mEq/L (5-15); Aspartate Amino Transferase 54 U/L (14-36); Bilirubin,Total 0.7 mg/dl (0.2-1.3); Blood Urea Nitrogen 17 mg/dl (7-17); Calcium 9.9 mg/dl (8.4-10.2); Carbon Dioxide 26 mmol/L (22.0-30.0); Creatinine Clearance Estimated 50 mL/min (50-200); Estimated Glomerular Filt Rate 49 ml/min (>60); GFR (African American) 60 ML/MIN (>60); Globulin 3.1 g/dL (1.3-3.2); Glucose 183 mg/dl (74-100); Total Protein,Serum 7.7 g/dl (6.3-8.2)
[2024-04-15 19:04] LABS: NT Pro Brain Natriuretic Pep. 562 pg/mL (0-125)
[2024-04-15] MEDS: KETOROLAC 30MG/ML VIAL 15 MG IV (19:05)
[2024-04-15] MEDS: HYDROMORPHONE 2MG/ML SYRINGE 0.5 MG IV (19:05)
[2024-04-15] MEDS: ONDANSETRON 4MG/2ML VIAL 4 MG IV (19:06)
[2024-04-15 19:10] LABS: VBG Base Excess 0.2 mmol/L (-2.4-2.3); VBG HCO3 22.3 mmol/L (23-30); VBG Oxygen Saturation 73.5 % (50-70); VBG PCO2 25.4 mmol/L (35-51); VBG PO2 35.6 mmol/L (28-40); VBG Total CO2 23.1 mmol/L (23-27)
[2024-04-15 19:14] LABS: Troponin I < 0.01 ng/ml (0.00-0.034)
[2024-04-15 19:15] VITALS: BP 121/77; PULSE 82; RESP 22; O2SAT 99
[2024-04-15 19:15] LABS: Potassium 2.9 mmoL/L (3.5-5.1)
--- NOTE | 2024-04-15 19:16 | PC.NURSE ---
Dr. Clement notified of Potassium of 2.9.
[2024-04-15 19:17] LABS: Lactate Venous 7.2 mmol/L (0.4-2.0); VBG PH 7.56 mmol/L (7.31-7.41)
[2024-04-15 19:20] LABS: Lymphocytes % 42 % (10-50); Monocytes % 9 % (2-9); Neutrophils % 46 % (42-76); Total Cells Counted 100
[2024-04-15 19:21] LABS: Burr Cells 2+; Platelet Estimate Normal
--- NOTE | 2024-04-15 19:29 | PC.NURSE ---
This RN called lab bc we are out of aerobic bottles. Instructed by Elisa to draw 2 Pedi (pink) cx bottles going forward until we get aerobic bottles again.
[2024-04-15] MEDS: IOPAMIDOL-370 (76%);100ML BOTTLE 80 ML IV (19:30)
[2024-04-15] MEDS: SODIUM CHLORIDE 0.9% 10ML SYR (RAD ONLY) 10 ML IV (19:30)
[2024-04-15] MEDS: 0.9 % SODIUM CHLORIDE 50 ML VIAL IV (19:30)
--- NOTE | 2024-04-15 19:30 | ECG_ITS ---
APPROVED REPORT Exam: Resting ECG HR:81 bpm ECG Measurements Heart Rate 81 AXES [place] 178 P 73 QRSd 78 QRS 74 QT 395 T 60 QTc 432 Conclusion SINUS RHYTHM MODERATE ST DEPRESSION [0.05+ mV ST DEPRESSION] ABNORMAL ECG UNCONFIRMED REPORT Electronically signed by : SARAI LOPEZ, 04/16/2024 06:53:20
[2024-04-15 19:48] LABS: Magnesium 1.3 mg/dl (1.6-2.3)
[2024-04-15] MEDS: KCl 10mEq/100ml 100 ML 100 MEQ IV ×2 (19:49→22:57)
[2024-04-15] MEDS: MAGNESIUM SULFATE IN WATER 2 GM/50 ML PIGGYBACK IV (19:49)
--- NOTE | 2024-04-15 19:52 | PC.NURSE ---
critical received. lactic 7.0
[2024-04-15] MEDS: AMPICILLIN/SULBACTAM 3 GM in 0.9 % SODIUM CHLORIDE 100 ML IV (20:34)
--- NOTE | 2024-04-15 20:46 | XR_ITS ---
PROCEDURE INFORMATION: Exam: XR Complete Acute Abdomen Series Including Chest Exam date and time: 04/15/2024 8:53 PM Age: 68 years old Clinical indication: Device placement; Gi device; Nasogastric tube; Additional info: Ng insertion TECHNIQUE: Imaging protocol: Radiologic exam. Complete acute abdomen series, including 2 or more views of the abdomen and a single view chest. COMPARISON: CR XR CHEST PORTABLE 04/15/2024 7:26 PM FINDINGS: Tubes, catheters and devices: Nasogastric tube tip coiled upon itself with tip projected over distal esophagus and not over stomach. Lungs: Normal. No consolidation. Pleural spaces: Normal. No pleural effusions. No pneumothorax. Heart/Mediastinum: Normal. No cardiomegaly. Gastrointestinal tract: Normal. No bowel dilation. Intraperitoneal space: Normal. No free air. Bones/joints: Normal. No acute fracture. Soft tissues: Normal. IMPRESSION: Nasogastric tube tip projected over esophagus and not over stomach. Recommend adjustment repeat radiographs.
[2024-04-15] MEDS: TETRACAINE/BENZOCAINE/BUTAMBEN 56 GM SPRAY TP (21:12)
--- NOTE | 2024-04-15 21:24 | PC.NURSE ---
report called to LESIA mustafa
--- NOTE | 2024-04-15 21:27 | P.HP_ITS ---
History of Present Illness *Admission Date: 04/15/24 *Reason for visit:: chest pain *History of present illness: Patient is a 68-year-old female with past medical history of Priest's esophagus, hiatal hernia, gastroparesis, GERD who presents to the hospital due to chest pain. Patient mentions her chest pain resolved in the emergency department however she has significant history of hiatal hernia, she is supposed to get surgery in [place] next 2 weeks. Patient was also noticed to have heart rates in 150s, which also resolved in the emergency department. On further evaluation patient denies active chest pain shortness of breath, constipation. [facility] Disclaimer: The information contained in this section may have been updated after the patient was seen, as this information can be updated by other users. Medical History Overweight with body mass index (BMI) of 29 to 29.9 in adult GERD (gastroesophageal reflux disease) Diabetes Depression Hyperlipidemia Hypertension Surgical History History of colonoscopy Family History Other Family history of cancer Social History (Updated 04/15/24 @ 22:12 by Brooklynn Robbins RN) Smoking Status: Unknown if ever smoked alcohol intake: never substance use type: denies use current occupational status: retired Travel in the last 8 weeks: None Other Medical History Have you received the Flu Vaccine for this season: No Have you received the Pneumonia Vaccine: No Review of Systems Review of Systems Review of systems:: pertinent systems reviewed and negative unless documented below Meds Home Medications and Allergies Home Medications ?Medication ?Instructions ?Recorded ?Confirmed ?Type atorvastatin 80 mg tablet See Rx Instructions .Route 11/11/23 04/15/24 Rx .COMPLEX #90 tabs bisoprolol 5 See Rx Instructions .Route 11/11/23 04/15/24 Rx mg-hydrochlorothiazide 6.25 mg .COMPLEX #90 tabs tablet cholecalciferol (vitamin D3) 50 See Rx Instructions .Route 11/11/23 04/15/24 Rx mcg (2,000 unit) capsule (Vitamin .COMPLEX #90 caps D3) fluoxetine 40 mg capsule See Rx Instructions .Route 11/11/23 04/15/24 Rx .COMPLEX #90 caps hydroxyzine pamoate 25 mg capsule 25 mg PO HS #30 caps 11/11/23 04/15/24 Rx (Vistaril) metformin 500 mg tablet See Rx Instructions .Route 11/11/23 04/15/24 Rx .COMPLEX #90 tabs pantoprazole 40 mg tablet,delayed See Rx Instructions .Route 11/11/23 04/15/24 Rx release .COMPLEX #90 tabs New Prescriptions to Start Prescriptions: Allergies Allergy/AdvReac Type Severity Reaction Status Date / Time No Known Drug Allergies Allergy Unknown NA Verified 03/20/24 11:05 [NKDA] Exam Data for Last 24 hours Vital signs and Labs for Last 24 Hours: Temp Pulse Resp BP Pulse Ox O2 Del Method O2 Flow Rate 98.1 F 82 22 121/77 99 Nasal Cannula 2 04/15/24 18:32 04/15/24 19:15 04/15/24 19:15 04/15/24 19:15 04/15/24 19:15 04/15/24 19:15 04/15/24 19:15 Laboratory Results - last 24 hr 04/15/24 18:12: WBC 15.3 H, RBC 4.07 L, Hgb 13.0, Hct 37.3, MCV 91.7, MCH 32.1 H , MCHC 35.0, RDW 13.5, Plt Count 451 H, MPV 7.6, Neut % (Auto) 47.4, Lymph % (Auto) 43.0, [place] % (Auto) 8.1, Eos % (Auto) 0.7, Baso % (Auto) 0.8, Neut # (Auto) 7.3, Lymph # (Auto) 6.6 H, [place] # (Auto) 1.2 H, Eos # (Auto) 0.1, Baso # (Auto) 0.1, Total Counted 100, Neutrophils % (Manual) 46, Lymphocytes % (Manual) 42, Atypical Lymphs % 3.0, Monocytes % (Manual) 9, Platelet Estimate Normal, [place] Cells 2+, Sodium 143, Potassium 2.9 L*, Chloride 98, Carbon Dioxide 26, Anion Gap 21.9 H, BUN 17, Creatinine 1.10 H, Estimated Creat Clear 50, Estimated GFR 49 L, Est GFR ( Amer) 60, Glucose 183 H, Calcium 9.9, Magnesium 1.3 L, Total Bilirubin 0.7, AST 54 H, ALT 58, Alkaline Phosphatase 99, Troponin I < 0.01, NT-Pro-B Natriuret Pep 562 H, Total Protein 7.7, Albumin 4.6, Globulin 3.1, Albumin/Globulin Ratio 1.5 04/15/24 18:37: VBG pH 7.56 H, VBG pCO2 25.4 L, VBG pO2 35.6, VBG HCO3 22.3 L, VBG Total CO2 23.1, VBG O2 Saturation 73.5 H, VBG Base Excess 0.2, VBG Lactic Acid 7.2 H 04/15/24 19:02: Lactate 7.0 H I & O for Last 24 hours: Intake & Output 04/12/24 04/13/24 04/14/24 04/15/24 23:59 23:59 23:59 23:59 Weight 65.771 kg Constitutional Constitutional: no acute distress *Routine HEENT Exam Head: Present normocephalic Eye: Present EOMI and PERRL ENT: Present mucous membranes moist *Routine Neck Exam Neck: Present supple; Absent lymphadenopathy *Routine Respiratory Exam Respiratory: Present CTA bilaterally *Routine Cardiovascular Exam Cardiovascular: Present RRR *Routine Abdominal Exam Abdominal: Present soft and normoactive bowel sounds; Absent tenderness *Routine Rectal Exam Rectal:: deferred *Routine Genitalia Exam Genitalia:: deferred *Routine Extremities Exam Extremities: Absent cyanosis, clubbing or edema *Routine Skin Exam Skin: Present warm; Absent rash *Routine Neurological Exam Neurological: Present alert and oriented X3 Assessment and Plan *Assessment and plan (1) Abdominal pain: Status: Acute Category: Medical Code(s): R10.9 - Unspecified abdominal pain (2) Chest pain: Status: Acute Category: Medical Code(s): R07.9 - Chest pain, unspecified (3) Gastroparesis: Status: Acute Category: Medical Code(s): K31.84 - Gastroparesis (4) Barretts esophagus: Status: Acute Category: Medical Code(s): K22.70 - Priest's esophagus without dysplasia (5) Hiatal hernia: Status: Acute Category: Medical Code(s): K44.9 - Diaphragmatic hernia without obstruction or gangrene (6) Diabetes: Status: Chronic Qualifiers: Diabetes mellitus complication status: without complication Diabetes mellitus middle or intermediate school principal insulin use: without longterm use Diabetes mellitus type: type 2 Qualified Code(s): E11.9 - Type 2 diabetes mellitus without complications Category: Medical Code(s): E11.9 - Type 2 diabetes mellitus without complications (7) Depression: Status: Chronic Qualifiers: Active/Remission status: currently active Depression Type: major depressive disorder Major depression episode severity: moderate Major depression recurrence: single episode Qualified Code(s): F32.1 - Major depressi ve disorder, single episode, moderate Category: Medical Code(s): F32.9 - Major depressive disorder, single episode, unspecified (8) Hyperlipidemia: Status: Chronic Qualifiers: Hyperlipidemia type: unspecified Qualified Code(s): E78.5 - Hyperlipidemia, unspecified Category: Medical Code(s): E78.5 - Hyperlipidemia, unspecified (9) Hypertension: Status: Chronic Qualifiers: Hypertension type: essential hypertension Qualified Code(s): I10 - Essential (primary) hypertension Category: Medical Code(s): I10 - Essential (primary) hypertension Plan Patient is a 68-year-old female with past medical history of Priest's esophagus, hiatal hernia, gastroparesis, GERD who presents to the hospital due to chest pain. Patient mentions her chest pain resolved in the emergency department however she has significant history of hiatal hernia, she is supposed to get surgery in [place] next 2 weeks. Patient was also noticed to have heart rates in 150s, which also resolved in the emergency department. On further evaluation patient denies active chest pain shortness of breath, constipation. Chest pain, episode of SVT with ST depression in the emergency department-rule out cardiac etiology Monitor on cardiac production designer troponin Consult cardiology Gastric dilation, inability to tolerate p.o. differentials include gastroparesis, gastric outlet obstruction, hiatal hernia N.p.o. for now Consult gastroenterology Status post NG tube with large amount of fluid Continue IV fluids in the meantime patient is n.p.o. Patient is a scheduled for surgery [facility] for hiatal hernia Leukocytosis likely reactive -Monitor off of antibiotics Check blood cultures Hypokalemia Monitor and replace electrolytes lactic acidosis-resolved Hypomagnesemia Monitor and replace Chronic medical conditions Hypertension Hyperlipidemia Depression Diabetes mellitus-order insulin sliding scale Resume home medications when able to take p.o. DVT prophylaxis-on heparin
[2024-04-15 21:36] VITALS: BP 121/77; PULSE 82; RESP 22; TEMP 36.7; O2SAT 99
[2024-04-15 21:40] VITALS: BP 121/77; PULSE 69; RESP 11; TEMP 36.3; O2SAT 99; BMI 26.0
[2024-04-15 22:15] LABS: Lactic Acid 1.7 mmol/L (0.7-2.1)
[2024-04-15 22:27] LABS: Troponin I 0.02 ng/ml (0.00-0.034)
[2024-04-15] MEDS: 0.9 % SODIUM CHLORIDE 1000ML 1,000 ML 50 ML IV (22:53)
[2024-04-15] MEDS: HEPARIN SODIUM 5,000 UNIT/ML VIAL 5000 UNIT SQ (22:58)
[2024-04-15 23:00] VITALS: O2SAT 96
[2024-04-15 23:11] LABS: Reflex Lactic Add Lactic Reflex
[2024-04-15] MEDS: VANCOMYCIN/WATER FOR INJ (PEG) 1.5 GM/300 ML PIGGYBACK IV (23:24)
[2024-04-15 23:37] LABS: Lactic Acid Follow Up (RFLX 1) 1.1 mmol/L (0.7-2.1)
[2024-04-15] MEDS: VANCOMYCIN CONSULT REQUEST 1 EACH NOTAPPLIC (23:38)
[2024-04-16] VITALS (8 sets, daily range): BP systolic 120–142; BP diastolic 73–87; PULSE 60–130; RESP 16–18; TEMP 36.9–37; O2SAT 94–97; BMI 26.1
[2024-04-16] MEDS: KCl 10mEq/100ml 100 ML 100 MEQ IV (00:15)
[2024-04-16] MEDS: PHENOL THROAT SPRAY 177 ML BOTTLE MM (01:18)
[2024-04-16 01:28] LABS: Troponin I 0.03 ng/ml (0.00-0.034)
--- NOTE | 2024-04-16 04:05 | PC.NURSE ---
68 yo female pt is A/O X 4. Pt was seen in the ER for chest pain and found to have gastroparesis. She has denies SOA or chest pain since admission to floor. NG intact to right nare with only small amount of drainage noted. Pt reports discomfort r/t NG. Administered chloraseptic spray and instructed in use. Pts HR has been in the 120s at times during the night however pt has remained asymptomatic. K+ administered per order. She has remained NPO except for a few bites of ice chips. She is able to ambulate to with standby assist.
[2024-04-16] MEDS: HEPARIN SODIUM 5,000 UNIT/ML VIAL 5000 UNIT SQ ×2 (05:28→13:19)
[2024-04-16 05:39] LABS: POC Glucose,Bedside 143 (70-110)
--- NOTE | 2024-04-16 07:21 | P.CONS_ITS ---
History of Present Illness *Admission Date: 04/15/24 *History of present illness: Mrs. Forde is a 68-year-old female with a history of GERD and dyspepsia. She now presents with noncardiac chest pain/esophageal chest pain. The patient also has had some ongoing dysphagia and is unable to keep food down. She has dysphagia to both solids and liquids. In the emergency department her heart rate was in the 150s. The patient's CAT scan had shown enlarging or larger hiatal hernia without any obvious gastric ischemia. The patient had recently seen Lis GOMEZ in GI clinic on 03/20 because of dysphagia over the last 6 months. She does get some chest pain and dyspepsia that occurs 3 times weekly but more recently this has been going on daily. 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 She has been on pantoprazole daily. This does help to control her heartburn and reflux but she continues to have some epigastric and retrosternal pain. The patient had a barium swallow that showed a large type III hiatal hernia with paraesophageal components. The patient was referred to the [facility] (Dr. Ellis) for hiatal hernia repair which is upcoming in April 2024. She reports no bloating or constipation. She does have moderate belching. Her grandmother had colon cancer at the age of 70. Patient is a 68-year-old female with past medical history of Priest's esophagus, hiatal hernia, gastroparesis, GERD who presents to the hospital due to chest pain. Patient mentions her chest pain resolved in the emergency department however she has significant history of hiatal hernia, she is supposed to get surgery in [place] next 2 weeks. Patient was also noticed to have heart rates in 150s, which also resolved in the emergency department. On further evaluation patient denies active chest pain shortness of breath, constipation. [facility] Disclaimer: The information contained in this section may have been updated after the patient was seen, as this information can be updated by other users. Medical History Overweight with body mass index (BMI) of 29 to 29.9 in adult GERD (gastroesophageal reflux disease) Diabetes Depression Hyperlipidemia Hypertension Surgical History History of colonoscopy Family History Other Family history of cancer Social History (Updated 04/15/24 @ 22:12 by Brooklynn Robbins RN) Smoking Status: Unknown if ever smoked alcohol intake: never substance use type: denies use current occupational status: retired Travel in the last 8 weeks: None Meds Home Medications and Allergies Home Medications ?Medication ?Instructions ?Recorded ?Confirmed ?Type atorvastatin 80 mg tablet 80 mg PO DAILY 04/16/24 04/16/24 History bisoprolol 5 1 tab PO DAILY 04/16/24 04/16/24 History mg-hydrochlorothiazide 6.25 mg tablet cholecalciferol (vitamin D3) 50 50 mcg PO DAILY 04/16/24 04/16/24 History mcg (2,000 unit) capsule (Vitamin D3) fluoxetine 40 mg capsule 40 mg PO DAILY 04/16/24 04/16/24 History metformin 500 mg tablet 500 mg PO DAILY 04/16/24 04/16/24 History pantoprazole 40 mg tablet,delayed 40 mg PO DAILY 04/16/24 04/16/24 History release New Prescriptions to Start Prescriptions: Allergies Allergy/AdvReac Type Severity Reaction Status Date / Time No Known Drug Allergies Allergy Unknown NA Verified 03/20/24 11:05 [NKDA] Exam (Inpt) Vital signs and Labs for Last 24 Hours: Temp Pulse Resp BP Pulse Ox O2 Del Method O2 Flow Rate 98.4 F 130 H 18 139/87 97 Room Air 2 04/16/24 04:00 04/16/24 06:30 04/16/24 04:00 04/16/24 04:00 04/16/24 04:00 04/16/24 06:50 04/16/24 04:00 Laboratory Results - last 24 hr 04/15/24 18:12: WBC 15.3 H, RBC 4.07 L, Hgb 13.0, Hct 37.3, MCV 91.7, MCH 32.1 H , MCHC 35.0, RDW 13.5, Plt Count 451 H, MPV 7.6, Neut % (Auto) 47.4, Lymph % (Auto) 43.0, [place] % (Auto) 8.1, Eos % (Auto) 0.7, Baso % (Auto) 0.8, Neut # (Auto) 7.3, Lymph # (Auto) 6.6 H, [place] # (Auto) 1.2 H, Eos # (Auto) 0.1, Baso # (Auto) 0.1, Total Counted 100, Neutrophils % (Manual) 46, Lymphocytes % (Manual) 42, Atypical Lymphs % 3.0, Monocytes % (Manual) 9, Platelet Estimate Normal, [place] Cells 2+, Sodium 143, Potassium 2.9 L*, Chloride 98, Carbon Dioxide 26, A nion Gap 21.9 H, BUN 17, Creatinine 1.10 H, Estimated Creat Clear 50, Estimated GFR 49 L, Est GFR ( Amer) 60, Glucose 183 H, Calcium 9.9, Magnesium 1.3 L , Total Bilirubin 0.7, AST 54 H, ALT 58, Alkaline Phosphatase 99, Troponin I < 0.01, NT-Pro-B Natriuret Pep 562 H, Total Protein 7.7, Albumin 4.6, Globulin 3.1, Albumin/Globulin Ratio 1.5 04/15/24 18:37: VBG pH 7.56 H, VBG pCO2 25.4 L, VBG pO2 35.6, VBG HCO3 22.3 L, VBG Total CO2 23.1, VBG O2 Saturation 73.5 H, VBG Base Excess 0.2, VBG Lactic Acid 7.2 H 04/15/24 19:02: Lactate 7.0 H 04/15/24 21:50: Lactate 1.7, Troponin I 0.02 04/15/24 23:25: Lactate 1.1 04/16/24 00:50: Troponin I 0.03 04/16/24 05:30: POC Glucose 143 H I & O for Labs for Last 24 Hours: Intake & Output 04/13/24 04/14/24 04/15/24 04/16/24 23:59 23:59 23:59 23:59 Intake Total 400 / 400 Output Total 50 / 50 Balance 350 / 350 Weight 147 lb 147 lb 4.8 oz Results Labs 04/15/24 18:12 04/15/24 18:12 Labs: Laboratory Results - last 24 hr 04/15/24 18:12: WBC 15.3 H, RBC 4.07 L, Hgb 13.0, Hct 37.3, MCV 91.7, MCH 32.1 H , MCHC 35.0, RDW 13.5, Plt Count 451 H, MPV 7.6, Neut % (Auto) 47.4, Lymph % (Auto) 43.0, [place] % (Auto) 8.1, Eos % (Auto) 0.7, Baso % (Auto) 0.8, Neut # (Auto) 7.3, Lymph # (Auto) 6.6 H, [place] # (Auto) 1.2 H, Eos # (Auto) 0.1, Baso # (Auto) 0.1, Total Counted 100, Neutrophils % (Manual) 46, Lymphocytes % (Manual) 42, Atypical Lymphs % 3.0, Monocytes % (Manual) 9, Platelet Estimate Normal, [place] Cells 2+, Sodium 143, Potassium 2.9 L*, Chloride 98, Carbon Dioxide 26, A nion Gap 21.9 H, BUN 17, Creatinine 1.10 H, Estimated Creat Clear 50, Estimated GFR 49 L, Est GFR ( Amer) 60, Glucose 183 H, Calcium 9.9, Magnesium 1.3 L , Total Bilirubin 0.7, AST 54 H, ALT 58, Alkaline Phosphatase 99, Troponin I < 0.01, NT-Pro-B Natriuret Pep 562 H, Total Protein 7.7, Albumin 4.6, Globulin 3.1, Albumin/Globulin Ratio 1.5 04/15/24 18:37: VBG pH 7.56 H, VBG pCO2 25.4 L, VBG pO2 35.6, VBG HCO3 22.3 L, VBG Total CO2 23.1, VBG O2 Saturation 73.5 H, VBG Base Excess 0.2, VBG Lactic Acid 7.2 H 04/15/24 19:02: Lactate 7.0 H 04/15/24 21:50: Lactate 1.7, Troponin I 0.02 04/15/24 23:25: Lactate 1.1 04/16/24 00:50: Troponin I 0.03 04/16/24 05:30: POC Glucose 143 H Assessment and Plan *Assessment and plan (1) Paraesophageal hernia: Status: Acute Category: Medical Code(s): K44.9 - Diaphragmatic hernia without obstruction or gangrene (2) Atypical chest pain: Status: Acute Category: Medical Code(s): R07.89 - Other chest pain (3) Dyspepsia: Status: Acute Category: Medical Code(s): R10.13 - Epigastric pain Plan 1. Esophageal chest pain with dysphagia, regurgitation and dyspepsia. I would attribute this to her large paraesophageal type hiatal hernia. This is a much larger type of hiatal hernia (9 to 10 cm with most of the stomach and chest) called a paraesophageal hernia. A hiatal hernia occurs when part of the upper stomach moves into the chest area. A paraesophageal hernia refers to larger portions of the stomach that are pushed up into the chest. Surgical management is more important with this type of hiatal hernia. Sometimes, there is torsion (gastric volvulus) of the stomach with resulting stomach obstruction which can lead to a medical emergency. This can lead to gastric volvulus. This was not identified on the scan but I do believe that she was developing partial obstruction with this and this should be repaired sooner than later. I would recommend that she or we notify Dr. Ellis to see if we can get her in for hernia repair sooner. There is even a danger that the stomach's blood supply may be cut off (strangulation). Additionally, we recommend surgical repair when persons have ongoing dyspeptic symptoms because of the potential for increased risk. She is certainly having escalation of symptoms and this is certainly why I would recommend having surgery reconsider doing this sooner.
--- NOTE | 2024-04-16 07:27 | HMH.PHAINT1 ---
Pharmacy Intervention Comments: Home medications verified using list from pharmacy.
[2024-04-16 07:28] LABS: Alanine Aminotransferase 31 U/L (12-78); Albumin Level 3.6 g/dl (3.5-5.0); Albumin/Globulin Ratio 1.4 (1.1-1.8); Alkaline Phosphatase 76 U/L (38-126); Anion Gap 5.6 mEq/L (5-15); Aspartate Amino Transferase 36 U/L (14-36); Bilirubin,Total 0.5 mg/dl (0.2-1.3); Blood Urea Nitrogen 17 mg/dl (7-17); Calcium 8.6 mg/dl (8.4-10.2); Carbon Dioxide 31 mmol/L (22.0-30.0); Chloride 107 mmol/L (98-107); Creatinine Clearance Estimated 56 mL/min (50-200); Estimated Glomerular Filt Rate 62 ml/min (>60); GFR (African American) 75 ML/MIN (>60); Globulin 2.6 g/dL (1.3-3.2); Glucose 109 mg/dl (74-100); Potassium 3.6 mmoL/L (3.5-5.1); Sodium 140 mmol/L (136-145); Total Protein,Serum 6.2 g/dl (6.3-8.2)
[2024-04-16 07:31] LABS: Eosinophils % 0.2 % (0.1-12.0)
--- NOTE | 2024-04-16 07:35 | CA_ITS ---
APPROVED REPORT EXAM: Comprehensive 2D, Doppler, and color-flow Echocardiogram [employer]: Sheela Fowler, OLIVIA, RVS Ht: 5 ft 2 in Wt: 147lbs BSA: 1.68 BP: 121/77 mmHg Rhythm: Tachycardia Indications: Abn EKG, CP, Gastroparesis, elevated WBC, HTN, HLD, DM 2D Dimensions IVSd 1.01 cm F: 0.6-1.0 LVEF (Visual) 65.20 % PWd 1.15 cm F: 0.6 - 1.0 LA Volume 53.20 mL LVDd 4.52 cm F: 3.9 - 5.3 LA Volume Index [phone] mL/m2 (M/F) 16-34 LVDs 2.91 cm F: 2.2 - 3.5 Left Atrium 4.20 cm F: 2.7 - 3.8 M-Mode Dimensions RVDd 0.87 cm (0.9-2.6) LA Diam 4.06 cm (1.9-4.0) LVDd 4.25 cm (3.5-5.7) LVDs 2.78 cm (3.5-5.7) IVSd 1.31 cm (0.6-1.1) PWd 1.14 cm (0.6-1.1) EF (Teich) 64.10% FS 34.60% EDV (Teich) 80.80 mL TAPSE 1.85 (<1.7) ESV (Teich) 29.00 mL LV Diastology E Decel Time 117 (160-240 msec) E/A Ratio 0.90 MED A' 13.80 cm/s LAT A' 7.30 cm/s Aortic Valve JET Index 1.48 cm2/m2 AoV Peak Cam. 124.0 (50-130 cm/s) AO Peak GR. 6.10 mmHg AO Mean GR. 3.10 (<5 mmHg) AO VTI 20.4 (18-25 cm) JET (VTI) 2.54 (2.5-4.5 cm2) Mitral Valve MV A Velocity 109.0 (40-130 cm/s) E/A Ratio 0.90 MV Mean Gr. 2.50 (<2mmHg) Pulmonary Valve PV Peak Velocity 114.0 (50-150 cm/s) Tricuspid Valve TR P. Velocity 246.00 cm/s RAP Estimate 10.00 mmHg RVSP 34.20 mmHg Left Ventricle The left ventricle is normal size. The left ventricular systolic function is normal. The left ventricular ejection fraction is within the normal range. There is increased LV wall thickness. There is normal LV segmental wall motion. Transmitral Doppler flow pattern suggests impaired LV relaxation. LVEF is 55%. Right Ventricle Right ventricle is mildly dilated. The right ventricular systolic function is normal. Atria Left atrium is mildly dilated. Right atrium is mildly dilated. There is no Doppler evidence of interatrial shunt. Aortic Valve The aortic valve is mildly thickened. Trace aortic regurgitation. There is no aortic valvular stenosis. Mitral Valve The mitral valve leaflets are mildly thickened. Mild mitral regurgitation. No evidence of mitral valve stenosis. Tricuspid Valve The tricuspid valve leaflets are thin and pliable. Mild to moderate tricuspid regurgitation. RVSP is 25-30 mmHg. Pulmonic Valve The pulmonary valve is normal in structure. Trace pulmonic regurgitation. Great Vessels The aortic root is normal in size. The ascending aorta is not well-visualized. IVC is normal in size and collapses >50% with inspiration. Pericardium There is no pericardial effusion. Other Information Study Quality: Fair Conclusion Normal biventricular systolic function. Mild RV dilation. Biatrial dilation. Mild to moderate TR. Mild MR. RVSP 25-30 mmHg. Electronically signed by : Cheyanne Hilton MD 04/16/2024 10:52:41
[2024-04-16] MEDS: 0.9 % SODIUM CHLORIDE 1000ML 1,000 ML 500 ML IV (07:40)
[2024-04-16 07:58] LABS: Basophils % 0.2 % (0.1-2.0); Hematocrit 33.1 % (37.0-47.0); Lymphocytes # 2.1 K/mm3 (0.7-4.5); Lymphocytes % 21.3 % (10-50); Mean Corpuscular HGB Conc 33.1 g/dL (31.8-35.4); Mean Corpuscular Hemoglobin 30.6 pg (27.0-31.2); Mean Corpuscular Volume 92.5 fl (81-99); Mean Platelet Volume 7.4 fl (7.4-10.4); Monocytes # 0.8 K/mm3 (0.1-1.0); Monocytes % 8.1 % (1.7-9.3); Neutrophils % 70.2 % (37.0-80.0); Platelet Count 359 K/mm3 (142-424); Red Blood Count 3.58 M/mm3 (4.20-5.40); Red Cell Distribution Width 13.4 % (11.5-17.5)
[2024-04-16 08:18] LABS: Troponin I 0.04 ng/ml (0.00-0.034)
--- NOTE | 2024-04-16 08:19 | ECG_ITS ---
APPROVED REPORT Exam: Resting ECG HR:123 bpm ECG Measurements Heart Rate 123 AXES QRSd 96 QRS 56 QT 290 T 257 QTc 363 Conclusion SU[address]AV[address]TRICULAR TACHYCARDIA ST DEVIATION AND MODERATE T-WAVE ABNORMALITY, CONSIDER ANTEROLATERAL ISCHEMIA [-0.1+ mV T-WAVE IN V3-V6] ST DEVIATION AND MODERATE T-WAVE ABNORMALITY, CONSIDER INFERIOR ISCHEMIA [-0.1+ mV T-WAVE IN II/aVF] ABNORMAL ECG UNCONFIRMED REPORT Electronically signed by : Alan Caba MD 04/18/2024 08:21:39
--- NOTE | 2024-04-16 09:25 | P.CONCA_ITS ---
History of Present Illness History of Present Illness Consult date: 04/16/24 Requesting physician: Duncan Yip Consult reason: chest pain Chief complaint: epigastic pain and vomiting History of present illness: This is a 68-year-old white female with past medical history of hypertension, hyperlipidemia, diabetes, anxiety and a hiatal hernia who presented to emergency department with complaints of epigastric pain that started about an hour after eating. Patient reports she has had ongoing dysphagia and hasn't been unable to keep food down for the last few weeks. Patient was recently evaluated 03/20 by Lis mena in the GI clinic for dysphagia over the last 6 months. She also had an EGD with Dr. Khan in December 2023 and was found to have short segment Priest's esophagus and a large paraesophageal type 9 centimeter hiatal hernia. Patient had a barium swallow that showed a large type III hiatal hernia with paraesophageal components and was referred to the [facility] for a hiatal hernia repair which is upcoming in April 2024. Upon presentation to emergency department initial EKG showed sinus tachycardia at a rate of [address] depressions which reportedly spontaneously converted to sinus rhythm at a rate of 81. Labs upon presentation to emergency department were as follow: WBC 15.3, hemoglobin 13, platelet count 451, sodium 143, potassium 2.9, creatinine 1.1, lactate 7, magnesium 1.3, AST 54, ALT 58, troponin 0.01 trending up to 0.04, proBNP 562. Chest CTA is negative for PE but did show a large hiatal hernia without obvious gastric ischemia. CT abdomen p jesenia showed a larger hiatal hernia without evidence of gastric ischemia and a nonobstructive left renal calculus. Patient was admitted for GI and cardiology consult. This morning on evaluation patient is resting comfortably with NG tube in place. She denies chest pain, shortness of breath, dizziness or syncope. Patient remains tachycardic with a heart rate in the 130s. [facility] Disclaimer: The information contained in this section may have been updated after the patient was seen, as this information can be updated by other users. Medical History Overweight with body mass index (BMI) of 29 to 29.9 in adult GERD (gastroesophageal reflux disease) Diabetes Depression Hyperlipidemia Hypertension Surgical History History of colonoscopy Family History Other Family history of cancer Social History (Updated 04/15/24 @ 22:12 by Brooklynn Robbins RN) Smoking Status: Unknown if ever smoked alcohol intake: never substance use type: denies use current occupational status: retired Travel in the last 8 weeks: None Review of Systems Review of Systems Review of systems:: pertinent systems reviewed and negative unless documented below Constitutional Constitutional: Reports system reviewed and no additional complaints, except as documented ENT Ears, Nose, Mouth, and Throat: Reports dysphagia *Cardiovascular Cardiovascular: Reports system reviewed and no additional complaints, except as documented *Respiratory Respiratory: Reports system reviewed and no additional complaints, except as documented *Gastrointestinal Gastrointestinal: Reports system reviewed and no additional complaints, except as documented, Reports abdominal pain, Reports belching, Reports bloating, Reports dysphagia, Reports heartburn and Reports nausea *Neurologic Neurologic: Reports system reviewed and no additional complaints, except as documented and Denies confusion Psychiatric Psychiatric: Reports system reviewed and no additional complaints, except as documented and Denies confusion Exam Data for Last 24 hours Vital signs and Labs for Last 24 Hours: Temp Pulse Resp BP Pulse Ox O2 Del Method O2 Flow Rate 98.4 F 130 H 18 142/84 H 94 L Room Air 2 04/16/24 07:27 04/16/24 08:00 04/16/24 07:27 04/16/24 07:27 04/16/24 07:27 04/16/24 07:45 04/16/24 04:00 Laboratory Results - last 24 hr 04/15/24 18:12: WBC 15.3 H, RBC 4.07 L, Hgb 13.0, Hct 37.3, MCV 91.7, MCH 32.1 H , MCHC 35.0, RDW 13.5, Plt Count 451 H, MPV 7.6, Neut % (Auto) 47.4, Lymph % (Auto) 43.0, Warrick % (Auto) 8.1, Eos % (Auto) 0.7, Baso % (Auto) 0.8, Neut # (Auto) 7.3, Lymph # (Auto) 6.6 H, Warrick # (Auto) 1.2 H, Eos # (Auto) 0.1, Baso # (Auto) 0.1, Total Counted 100, Neutrophils % (Manual) 46, Lymphocytes % (Manual) 42, Atypical Lymphs % 3.0, Monocytes % (Manual) 9, Platelet Estimate Normal, Ruben Cells 2+, Sodium 143, Potassium 2.9 L*, Chloride 98, Carbon Dioxide 26, Anion Gap 21.9 H, BUN 17, Creatinine 1.10 H, Estimated Creat Clear 50, Estimated GFR 49 L, Est GFR ( Amer) 60, Glucose 183 H, Calcium 9.9, Magnesium 1.3 L , Total Bilirubin 0.7, AST 54 H, ALT 58, Alkaline Phosphatase 99, Troponin I < 0.01, NT-Pro-B Natriuret Pep 562 H, Total Protein 7.7, Albumin 4.6, Globulin 3.1, Albumin/Globulin Ratio 1.5 04/15/24 18:37: VBG pH 7.56 H, VBG pCO2 25.4 L, VBG pO2 35.6, VBG HCO3 22.3 L, VBG Total CO2 23.1, VBG O2 Saturation 73.5 H, VBG Base Excess 0.2, VBG Lactic Acid 7.2 H 04/15/24 19:02: Lactate 7.0 H 04/15/24 21:50: Lactate 1.7, Troponin I 0.02 04/15/24 23:25: Lactate 1.1 04/16/24 00:50: Troponin I 0.03 04/16/24 05:30: POC Glucose 143 H 04/16/24 06:54: WBC 10.0 D, RBC 3.58 L, Hgb 11.0 L D, Hct 33.1 L, MCV 92.5, MCH 30.6, MCHC 33.1, RDW 13.4, Plt Count 359, MPV 7.4, Neut % (Auto) 70.2, Lymph % (Auto) 21.3, Warrick % (Auto) 8.1, Eos % (Auto) 0.2, Baso % (Auto) 0.2, Neut # (Auto) 7.0, Lymph # (Auto) 2.1, Warrick # (Auto) 0.8, Eos # (Auto) 0.0, Baso # (Auto) 0.0, Sodium 140, Potassium 3.6 D, Chloride 107, Carbon Dioxide 31 H, Anion Gap 5.6, BUN 17, Creatinine 0.90, Estimated Creat Clear 56, Estimated GFR 62, Est GFR ( Amer) 75 D, Glucose 109 H D, Calcium 8.6, Total Bilirubin 0.5, AST 36 D, ALT 31 D, Alkaline Phosphatase 76, Troponin I 0.04 H, Total Protein 6.2 L, Albumin 3.6 D, Globulin 2.6, Albumin/Globulin Ratio 1.4 I & O for Last 24 hours: Intake & Output 04/13/24 04/14/24 04/15/24 04/16/24 23:59 23:59 23:59 23:59 Intake Total 400 / 400 Output Total 50 / 50 Balance 350 / 350 Weight 147 lb 147 lb 4.8 oz Constitutional Constitutional: no acute distress *Routine Respiratory Exam Respiratory: Present CTA bilaterally and symmetric chest movement *Routine Cardiovascular Exam Cardiovascular: Present RRR, Normal S1 and Normal S2 *Routine Abdominal Exam Abdominal: Present soft and normoactive bowel sounds; Absent tenderness *Routine Extremities Exam Extremities: Present full ROM and normal capillary refill; Absent edema *Routine Skin Exam Skin: Present intact, dry and warm Detailed Neck Exam: Thyroids Thyroid: Absent bruit Meds Home Medications and Allergies Home Medications ?Medication ?Instructions ?Recorded ?Confirmed ?Type atorvastatin 80 mg tablet 80 mg PO DAILY 04/16/24 04/16/24 History bisoprolol 5 1 tab PO DAILY 04/16/24 04/16/24 History mg-hydrochlorothiazide 6.25 mg tablet cholecalciferol (vitamin D3) 50 50 mcg PO DAILY 04/16/24 04/16/24 History mcg (2,000 unit) capsule (Vitamin D3) fluoxetine 40 mg capsule 40 mg PO DAILY 04/16/24 04/16/24 History metformin 500 mg tablet 500 mg PO DAILY 04/16/24 04/16/24 History pantoprazole 40 mg tablet,delayed 40 mg PO DAILY 04/16/24 04/16/24 History release New Prescriptions to Start Prescriptions: Allergies Allergy/AdvReac Type Severity Reaction Status Date / Time No Known Drug Allergies Allergy Unknown NA Verified 03/20/24 11:05 [NKDA] Assessment and Plan *Assessment and plan (1) Dyspepsia: Status: Acute Category: Medical Code(s): R10.13 - Epigastric pain (2) Barretts esophagus: Status: Acute Category: Medical Code(s): K22.70 - Priest's esophagus without dysplasia (3) Hiatal hernia: Status: Acute Category: Medical Code(s): K44.9 - Diaphragmatic hernia without obstruction or gangrene (4) Epigastric pain: Status: Acute Category: Medical Code(s): R10.13 - Epigastric pain (5) Sinus tachycardia: Status: Acute Category: Medical Code(s): R00.0 - Tachycardia, unspecified (6) Elevated troponin: Status: Acute Category: Medical Code(s): R79.89 - Other specified abnormal findings of blood chemistry (7) Myocardial injury: Status: Acute Category: Medical Code(s): I5A - Non-ischemic myocardial injury (non-traumatic) (8) SAULO (acute kidney injury): Status: Acute Category: Medical Code(s): N17.9 - Acute kidney failure, unspecified (9) Hyperlipidemia: Status: Chronic Qualifiers: Hyperlipidemia type: unspecified Qualified Code(s): E78.5 - Hyperlipidemia, unspecified Category: Medical Code(s): E78.5 - Hyperlipidemia, unspecified (10) Hypertension: Status: Chronic Qualifiers: Hypertension type: essential hypertension Qualified Code(s): I10 - Essential (primary) hypertension Category: Medical Code(s): I10 - Essential (primary) hypertension (11) Hypokalemia: Status: Acute Category: Medical Code(s): E87.6 - Hypokalemia Plan Acute myocardial injury Elevated trop Troponin elevated from 0.01-0.04 in the setting of acute illness with saulo and likely dehydration from poor po intake ST depression noted on ekg- likely from demand- sinus tach and acute illness Echo shows a normal ejection fraction with no obvious wall motion abnormalities noted. Mild RV dilation, biatrial dilation, mild to moderate TR, mild MR, RVSP 25-30 Patient reports she is pain-free at this time No plan for intervention at this time Sinus tachycardia Recommend gentle hydration and resuming home dose bisoprolol 5 mg p.o. daily Hypokalemia Hypomagnesemia Replaced per primary service Priest's esophagus Large hiatal hernia Gastroparesis Patient is being evaluated by GI Defer to GI and primary service SAULO Creatinine 1.1 trending down to 0.9 Recommend gentle hydration Hypertension Resume bisoprolol 5 mg p.o. daily CV summary 04/16/2024: Likely acute myocardial injury secondary to acute illness and demand ischemia from sinus tachycardia. No plan for intervention at this time. Echo shows normal EF with no wall motion abnormalities noted. Patient is pain-free. Recommend gentle hydration for sinus tachycardia and resume home dose of bisoprolol 5 mg p.o. daily. Hold HCTZ in the setting of SAULO and likely dehydration. Recommend outpatient 2-week follow-up in cardiology clinic. Cardiology will sign off, please contact service as needed.
[2024-04-16] MEDS: ASPIRIN EC 81MG TABLET 81 MG PO (09:40)
[2024-04-16] MEDS: BISOPROLOL HCTZ 1 EACH PO (09:41)
--- NOTE | 2024-04-16 11:19 | PC.NURSE ---
PT HAS TOLERATED A SMALL AMOUNT OF APPLESAUCE AND COFFEE THIS AM WITH NO NAUSEA OR VOMITING.
[2024-04-16 14:45] LABS: POC Glucose,Bedside 123 (70-110)
--- NOTE | 2024-04-16 14:49 | PC.NURSE ---
called Dr. Leung's office patient is scheduled for hernia repair in 2 weeks. wants it moved up. they will speak with surgeon and call back.
--- NOTE | 2024-04-16 16:42 | P.DS_ITS ---
General Admission date:: 04/15/24 HPI HPI HPI: Mrs. Forde is a 68-year-old female with a history of GERD and dyspepsia. She now presents with noncardiac chest pain/esophageal chest pain. The patient also has had some ongoing dysphagia and is unable to keep food down. She has dysphagia to both solids and liquids. In the emergency department her heart rate was in the 150s. The patient's CAT scan had shown enlarging or larger hiata l hernia without any obvious gastric ischemia. The patient had recently seen Lis GOMEZ in GI clinic on 03/20 because of dysphagia over the last 6 months. She does get some chest pain and dyspepsia that occurs 3 times weekly but more recently this has been going on daily. 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 She has been on pantoprazole daily. This does help to control her heartburn and reflux but she continues to have some epigastric and retrosternal pain. The patient had a barium swallow that showed a large type III hiatal hernia with paraesophageal components. The patient was referred to the [facility] (Dr. Ellis) for hiatal hernia repair which is upcoming in April 2024. She reports no bloating or constipation. She does have moderate belching. Her grandmother had colon cancer at the age of 70. Patient is a 68-year-old female with past medical history of Priest's esophagus, hiatal hernia, gastroparesis, GERD who presents to the hospital due to chest pain. Patient mentions her chest pain resolved in the emergency department however she has significant history of hiatal hernia, she is supposed to get surgery in [place] next 2 weeks. Patient was also noticed to have heart rates in 150s, which also resolved in the emergency department. On further evaluation patient denies active chest pain shortness of breath, constipation. Hospital Course Hospital Course Hospital Course: Patient is a 68-year-old female with past medical history of Priest's esophagus, hiatal hernia, gastroparesis, GERD who presents to the hospital due to chest pain. Patient mentions her chest pain resolved in the emergency department however she has significant history of hiatal hernia, she is supposed to get surgery in [place] next 2 weeks. Patient was also noticed to have heart rates in 150s, which also resolved in the emergency department. On further evaluation patient denies active chest pain shortness of breath, constipation. Large paraesophageal hiatal hernia - Presented with chest pain, N/V. - Status post NG tube with large amount of fluid suctioned. - Patient does have sugery scheduled for repair in 2 weeks at [facility] with Dr. Leung. - GI consulted, recommended preponing surgery. - I contacted Dr. Leung's office to inquire about preponing surgery, they advised they would reach out to patient tomorrow. - I also reached out to [facility] in [facility] in [place], however general surgeon there does not repair large paraesophageal hiatal hernias. - Patient was given PO challenge with advanvement of diet and tolerated it appropriately without chest pain, N/V. NG tube was discontinued. - Given resolution of patient's symptoms, she is suitable for close follow-up with established general surgery. Return precautions given. Chest pain, episode of SVT with ST depression in the emergency department-rule out cardiac etiology - Troponins 0.03 -> 0.04. EKG changes as above. - Cardiology consulted, attributed changes to demand ischemia from SVT/sinus tachycardia. - ECHO shows normal EF with no wall motion abnormalities noted. - Medical stable from cardiac standpoint. - Resumed home bisoprolol with resolution in sinus tachycardia. Leukocytosis likely reactive - Resolved with IV fluid hydration. Hypokalemia Hypomagnesemia - Resolved with repletion. Exam Data for Last 24 hours Vital signs and Labs for Last 24 Hours: Temp Pulse Resp BP Pulse Ox O2 Del Method O2 Flow Rate 98.5 F 72 16 128/75 95 Room Air 2 04/16/24 16:00 04/16/24 16:00 04/16/24 16:00 04/16/24 16:00 04/16/24 16:00 04/16/24 16:00 04/16/24 04:00 Laboratory Results - last 24 hr 04/15/24 18:12: WBC 15.3 H, RBC 4.07 L, Hgb 13.0, Hct 37.3, MCV 91.7, MCH 32.1 H , MCHC 35.0, RDW 13.5, Plt Count 451 H, MPV 7.6, Neut % (Auto) 47.4, Lymph % (Auto) 43.0, Louisa % (Auto) 8.1, Eos % (Auto) 0.7, Baso % (Auto) 0.8, Neut # (Auto) 7.3, Lymph # (Auto) 6.6 H, Louisa # (Auto) 1.2 H, Eos # (Auto) 0.1, Baso # (Auto) 0.1, Total Counted 100, Neutrophils % (Manual) 46, Lymphocytes % (Manual) 42, Atypical Lymphs % 3.0, Monocytes % (Manual) 9, Platelet Estimate Normal, Woodward Cells 2+, Sodium 143, Potassium 2.9 L*, Chloride 98, Carbon Dioxide 26, Anion Gap 21.9 H, BUN 17, Creatinine 1.10 H, Estimated Creat Clear 50, Estimated GFR 49 L, Est GFR ( Amer) 60, Glucose 183 H, Calcium 9.9, Magnesium 1.3 L , Total Bilirubin 0.7, AST 54 H, ALT 58, Alkaline Phosphatase 99, Troponin I < 0.01, NT-Pro-B Natriuret Pep 562 H, Total Protein 7.7, Albumin 4.6, Globulin 3.1, Albumin/Globulin Ratio 1.5 04/15/24 18:37: VBG pH 7.56 H, VBG pCO2 25.4 L, VBG pO2 35.6, VBG HCO3 22.3 L, VBG Total CO2 23.1, VBG O2 Saturation 73.5 H, VBG Base Excess 0.2, VBG Lactic Acid 7.2 H 04/15/24 19:02: Lactate 7.0 H 04/15/24 21:50: Lactate 1.7, Troponin I 0.02 04/15/24 23:25: Lactate 1.1 04/16/24 00:50: Troponin I 0.03 04/16/24 05:30: POC Glucose 143 H 04/16/24 06:54: WBC 10.0 D, RBC 3.58 L, Hgb 11.0 L D, Hct 33.1 L, MCV 92.5, MCH 30.6, MCHC 33.1, RDW 13.4, Plt Count 359, MPV 7.4, Neut % (Auto) 70.2, Lymph % (Auto) 21.3, Louisa % (Auto) 8.1, Eos % (Auto) 0.2, Baso % (Auto) 0.2, Neut # (Auto) 7.0, Lymph # (Auto) 2.1, Louisa # (Auto) 0.8, Eos # (Auto) 0.0, Baso # (Auto) 0.0, Sodium 140, Potassium 3.6 D, Chloride 107, Carbon Dioxide 31 H, Anion Gap 5.6, BUN 17, Creatinine 0.90, Estimated Creat Clear 56, Estimated GFR 62, Est GFR ( Amer) 75 D, Glucose 109 H D, Calcium 8.6, Total Bilirubin 0.5, AST 36 D, ALT 31 D, Alkaline Phosphatase 76, Troponin I 0.04 H, Total Protein 6.2 L, Albumin 3.6 D, Globulin 2.6, Albumin/Globulin Ratio 1.4 04/16/24 11:25: POC Glucose 123 H I & O for Last 24 hours: Intake & Output 04/13/24 04/14/24 04/15/24 04/16/24 23:59 23:59 23:59 23:59 Intake Total 400 / 400 Output Total 50 / 50 Balance 350 / 350 Weight 66.678 kg 66.814 kg Constitutional Constitutional: no acute distress *Routine HEENT Exam Head: Present normocephalic Eye: Present EOMI and PERRL ENT: Present mucous membranes moist *Routine Neck Exam Neck: Present supple; Absent lymphadenopathy *Routine Respiratory Exam Respiratory: Present CTA bilaterally *Routine Cardiovascular Exam Cardiovascular: Present RRR *Routine Abdominal Exam Abdominal: Present soft and normoactive bowel sounds; Absent tenderness *Routine Extremities Exam Extremities: Absent cyanosis, clubbing or edema *Routine Skin Exam Skin: Present warm; Absent rash *Routine Neurological Exam Neurological: Present alert and oriented X3 Results Data Completed and Pending Labs on day of discharge: Labs from last 24 hours 04/16/24 04/16/24 04/16/24 11:25 06:54 05:30 WBC 10.0 D RBC 3.58 L Hgb 11.0 L D Hct 33.1 L MCV 92.5 MCH 30.6 MCHC 33.1 RDW 13.4 Plt Count 359 MPV 7.4 Neut % (Auto) 70.2 Lymph % (Auto) 21.3 Louisa % (Auto) 8.1 Eos % (Auto) 0.2 Baso % (Auto) 0.2 Neut # (Auto) 7.0 Lymph # (Auto) 2.1 Louisa # (Auto) 0.8 Eos # (Auto) 0.0 Baso # (Auto) 0.0 Total Counted Neutrophils % (Manual) Lymphocytes % (Manual) Atypical Lymphs % Monocytes % (Manual) Platelet Estimate Ruben Cells VBG pH VBG pCO2 VBG pO2 VBG HCO3 VBG Total CO2 VBG O2 Saturation VBG Base Excess VBG Lactic Acid Sodium 140 Potassium 3.6 D Chloride 107 Carbon Dioxide 31 H Anion Gap 5.6 BUN 17 Creatinine 0.90 Estimated Creat Clear 56 Estimated GFR 62 Est GFR ( Amer) 75 D Glucose 109 H D POC Glucose 123 H 143 H Lactate Calcium 8.6 Magnesium Total Bilirubin 0.5 AST 36 D ALT 31 D Alkaline Phosphatase 76 Troponin I 0.04 H NT-Pro-B Natriuret Pep Total Protein 6.2 L Albumin 3.6 D Globulin 2.6 Albumin/Globulin Ratio 1.4 04/16/24 04/15/24 04/15/24 00:50 23:25 21:50 WBC RBC Hgb Hct MCV MCH MCHC RDW Plt Count MPV Neut % (Auto) Lymph % (Auto) Louisa % (Auto) Eos % (Auto) Baso % (Auto) Neut # (Auto) Lymph # (Auto) Louisa # (Auto) Eos # (Auto) Baso # (Auto) Total Counted Neutrophils % (Manual) Lymphocytes % (Manual) Atypical Lymphs % Monocytes % (Manual) Platelet Estimate Woodward Cells VBG pH VBG pCO2 VBG pO2 VBG HCO3 VBG Total CO2 VBG O2 Saturation VBG Base Excess VBG Lactic Acid Sodium Potassium Chloride Carbon Dioxide Anion Gap BUN Creatinine Estimated Creat Clear Estimated GFR Est GFR ( Amer) Glucose POC Glucose Lactate 1.1 1.7 Calcium Magnesium Total Bilirubin AST ALT Alkaline Phosphatase Troponin I 0.03 0.02 NT-Pro-B Natriuret Pep Total Protein Albumin Globulin Albumin/Globulin Ratio 04/15/24 04/15/24 04/15/24 19:02 18:37 18:12 WBC 15.3 H RBC 4.07 L Hgb 13.0 Hct 37.3 MCV 91.7 MCH 32.1 H MCHC 35.0 RDW 13.5 Plt Count 451 H MPV 7.6 Neut % (Auto) 47.4 Lymph % (Auto) 43.0 Louisa % (Auto) 8.1 Eos % (Auto) 0.7 Baso % (Auto) 0.8 Neut # (Auto) 7.3 Lymph # (Auto) 6.6 H Louisa # (Auto) 1.2 H Eos # (Auto) 0.1 Baso # (Auto) 0.1 Total Counted 100 Neutrophils % (Manual) 46 Lymphocytes % (Manual) 42 Atypical Lymphs % 3.0 Monocytes % (Manual) 9 Platelet Estimate Normal Woodward Cells 2+ VBG pH 7.56 H VBG pCO2 25.4 L VBG pO2 35.6 VBG HCO3 22.3 L VBG Total CO2 23.1 VBG O2 Saturation 73.5 H VBG Base Excess 0.2 VBG Lactic Acid 7.2 H Sodium 143 Potassium 2.9 L* Chloride 98 Carbon Dioxide 26 Anion Gap 21.9 H BUN 17 Creatinine 1.10 H Estimated Creat Clear 50 Estimated GFR 49 L Est GFR ( Amer) 60 Glucose 183 H POC Glucose Lactate 7.0 H Calcium 9.9 Magnesium 1.3 L Total Bilirubin 0.7 AST 54 H ALT 58 Alkaline Phosphatase 99 Troponin I < 0.01 NT-Pro-B Natriuret Pep 562 H Total Protein 7.7 Albumin 4.6 Globulin 3.1 Albumin/Globulin Ratio 1.5 DS: Diagnosis Discharge Diagnosis (1) Dyspepsia: Status: Acute Code(s): R10.13 - Epigastric pain (2) Barretts esophagus: Status: Acute Code(s): K22.70 - Priest's esophagus without dysplasia (3) Hiatal hernia: Status: Acute Code(s): K44.9 - Diaphragmatic hernia without obstruction or gangrene (4) Epigastric pain: Status: Acute Code(s): R10.13 - Epigastric pain (5) Sinus tachycardia: Status: Acute Code(s): R00.0 - Tachycardia, unspecified (6) Elevated troponin: Status: Acute Code(s): R79.89 - Other specified abnormal findings of blood chemistry (7) Myocardial injury: Status: Acute Code(s): I5A - Non-ischemic myocardial injury (non-traumatic) (8) SAULO (acute kidney injury): Status: Acute Code(s): N17.9 - Acute kidney failure, unspecified (9) Hyperlipidemia: Status: Chronic Code(s): E78.5 - Hyperlipidemia, unspecified Qualifiers: Hyperlipidemia type: unspecified Qualified Code(s): E78.5 - Hyperlipidemia, unspecified (10) Hypertension: Status: Chronic Code(s): I10 - Essential (primary) hypertension Qualifiers: Hypertension type: essential hypertension Qualified Code(s): I10 - Essential (primary) hypertension (11) Hypokalemia: Status: Acute Code(s): E87.6 - Hypokalemia Meds Home Medications and Allergies Home Medications ?Medication ?Instructions ?Recorded ?Confirmed ?Type atorvastatin 80 mg tablet 80 mg PO DAILY 04/16/24 04/16/24 History bisoprolol 5 1 tab PO DAILY 04/16/24 04/16/24 History mg-hydrochlorothiazide 6.25 mg tablet cholecalciferol (vitamin D3) 50 50 mcg PO DAILY 04/16/24 04/16/24 History mcg (2,000 unit) capsule (Vitamin D3) fluoxetine 40 mg capsule 40 mg PO DAILY 04/16/24 04/16/24 History metformin 500 mg tablet 500 mg PO DAILY 04/16/24 04/16/24 History pantoprazole 40 mg tablet,delayed 40 mg PO BID 30 days #60 tabs 04/16/24 Rx release New Prescriptions to Start Prescriptions: pantoprazole Duncan Yip Allergies Allergy/AdvReac Type Severity Reaction Status Date / Time No Known Drug Allergies Allergy Unknown NA Verified 03/20/24 11:05 [NKDA] Discharge Plan Disposition Patient Disposition: Home, Self-Care Condition: Fair Follow up Plan Follow up with: Niki Torres APRN [Primary Care Provider] - Enter time for follow up (please call for appointment) Prescriptions/Medication Reconciliation: Continued fluoxetine 40 mg capsule 40 mg PO DAILY metformin 500 mg tablet 500 mg PO DAILY atorvastatin 80 mg tablet 80 mg PO DAILY bisoprolol-hydrochlorothiazide 5-6.25 mg tablet 1 tab PO DAILY cholecalciferol (vitamin D3) [Vitamin D3] 50 mcg (2,000 unit) capsule 50 mcg PO DAILY Changed pantoprazole 40 mg tablet,delayed release (DR/EC) 40 mg PO BID 30 Days Qty: 60 0RF Problem Reconciliation Problems Reviewed?: Yes Patient Discharge Instructions Additional Instructions: Please call your general surgeon to have your hiatal hernia surgery preponed as soon as possible. We have tried to contact your surgeon, and they said they are clinic will call you tomorrow. If they do not, please reach out to them. Patient Instructions: DI for Hypokalemia, DI for Chest Pain, DI for Gastropa resis Print Language: Faroese Providers Primary Care Provider: Niki Torres Admit Provider: Raj Jackman Attending Provider: Raj Jackman
[2024-04-16 17:16] LABS: Magnesium 1.7 mg/dl (1.6-2.3)
--- NOTE | 2024-04-17 13:10 | CARE MANAGER ---
Called and spoke with patient regarding recent discharge. Patient stated that she is working with surgeon's office to get surgery scheduled sooner. Plans to call Niki Torres to schedule f/u appt. No concerns/questions voiced at time of call.
== END 2024-04-16 17:15 | disposition home or self-care (01) ==
LOC: ER 21:13 → 2ND 21:41
PROVIDERS: Student in an Organized Health Care Education/Training Program; Admitting Provider Internal Medicine; Emergency Provider Emergency Medicine; PCP Family Medicine; Visit Provider Internal Medicine
DX: R10.9 Unspecified abdominal pain (principal); R07.9 Chest pain, unspecified; K31.84 Gastroparesis; K22.70 Barrett's esophagus without dysplasia; K44.9 Diaphragmatic hernia without obstruction or gangrene; E11.9 Type 2 diabetes mellitus without complications; F32.1 Major depressive disorder, single episode, moderate; E78.5 Hyperlipidemia, unspecified; I10 Essential (primary) hypertension; R07.89 Other chest pain; R10.13 Epigastric pain; R00.0 Tachycardia, unspecified; R79.89 Other specified abnormal findings of blood chemistry; N17.9 Acute kidney failure, unspecified; E87.6 Hypokalemia; Z79.84 Long term (current) use of oral hypoglycemic drugs; Z79.899 Other long term (current) drug therapy
CPT/HCPCS: 36415; 71045; 71275; 74021; 74174; 80053; 82803; 82962; 83605; 83735; 83880; 84484; 85007; 85025; 85027; 87040; 93005; 93306; 99285; G0378; J0295; J1171; J1644; J1885; J2405; J3475; J3480; J7030; Q9967

== ENCOUNTER 2024-07-25 10:20 | Outpatient (CLI) | payer MEDICARE, MEDICAID, SELFPAY ==
[2024-07-25 11:00] LABS: Basophils # 0.1 K/mm3 (0-0.2); Basophils % 0.5 % (0.1-2.0); Eosinophils # 0.2 K/mm3 (0.0-0.4); Hematocrit 33.1 % (37.0-47.0); Hemoglobin 11.2 g/dL (12.2-16.2); Lymphocytes # 2.4 K/mm3 (0.7-4.5); Lymphocytes % 25.9 % (10-50); Mean Corpuscular HGB Conc 33.8 g/dL (31.8-35.4); Mean Corpuscular Hemoglobin 30.3 pg (27.0-31.2); Mean Corpuscular Volume 89.5 fl (81-99); Mean Platelet Volume 8.5 fl (7.4-10.4); Monocytes # 0.8 K/mm3 (0.1-1.0); Monocytes % 8.2 % (1.7-9.3); Neutrophils # 5.9 K/mm3 (1.8-7.8); Platelet Count 373 K/mm3 (142-424); Red Cell Distribution Width 12.5 % (11.5-17.5); White Blood Count 9.4 K/mm3 (4.8-10.8)
[2024-07-25 11:44] LABS: Alanine Aminotransferase 30 U/L (12-78); Alkaline Phosphatase 124 U/L (38-126); Anion Gap 11.9 mEq/L (5-15); Aspartate Amino Transferase 30 U/L (14-36); Bilirubin,Direct 0.1 mg/dl (0.0-0.4); Bilirubin,Indirect 0.2 mg/dL (0.0-0.9); Bilirubin,Total 0.3 mg/dl (0.2-1.3); Bilirubin,Unconjugated 0.2 mg/dL (0.0-1.1); Blood Urea Nitrogen 16 mg/dl (7-17); Calcium 9.7 mg/dl (8.4-10.2); Carbon Dioxide 30 mmol/L (22.0-30.0); Chloride 100 mmol/L (98-107); Chol/HDL Ratio 3.1 (1-3.5); Cholesterol 144 mg/dl (140-200); Estimated Glomerular Filt Rate 71 ml/min (>60); GFR (African American) 86 ML/MIN (>60); Glucose 101 mg/dl (74-100); HDL Cholesterol 47 mg/dl (40-60); Magnesium 1.5 mg/dl (1.6-2.3); Potassium 3.9 mmoL/L (3.5-5.1); Sodium 138 mmol/L (136-145); Total Protein,Serum 6.5 g/dl (6.3-8.2); Triglycerides 176 mg/dl (30-150); VLDL Cholesterol 35 mg/dL (0-40)
[2024-07-25 11:55] LABS: Direct LDL Cholesterol 59.54 mg/dL (100-129)
[2024-07-25 12:00] LABS: Free T4 (Free Thyroxine) 1.29 ng/dl (0.78-2.19)
[2024-07-25 12:15] LABS: Thyroid Stimulating Hormone 0.98 uIU/mL (0.465-4.68)
== END 2024-07-25 23:59 | disposition home or self-care (01) ==
LOC: LAB 10:21
PROVIDERS: PCP Nurse Practitioner Family; Visit Provider Nurse Practitioner
DX: I47.10 Supraventricular tachycardia, unspecified (principal); K21.9 Gastro-esophageal reflux disease without esophagitis; E11.9 Type 2 diabetes mellitus without complications; E78.5 Hyperlipidemia, unspecified; I10 Essential (primary) hypertension; I48.0 Paroxysmal atrial fibrillation
CPT/HCPCS: 36415; 80048; 80061; 80076; 83735; 84439; 84443; 85025; 93270

== ENCOUNTER 2024-08-09 13:55 | Outpatient (CLI) | payer MEDICARE, MEDICAID, SELFPAY ==
[2024-08-09 18:51] LABS: Creatinine,Urine Random 149 mg/dL (Not Estab.)
[2024-08-09 18:55] LABS: Microalbumin/Creatinine Ratio 8.5
== END 2024-08-09 23:59 | disposition home or self-care (01) ==
LOC: LAB.DROPOF 08-10 10:36
PROVIDERS: PCP Family Medicine; Visit Provider Family Medicine
DX: E11.9 Type 2 diabetes mellitus without complications (principal)
CPT/HCPCS: 82043; 82570